=== PATIENT | female | born 1970 | race African-American/Black ===

== ENCOUNTER 2018-12-26 15:47 | Inpatient (IN) | payer MEDICARE, OTHER ==
[~2018-12-26] VITALS: Ht 165.1 cm; Wt 58.1 kg
--- NOTE | 2018-12-26 | NUR ---
NURSE NOTES: Called instructor adjunct surgical technician regarding chest xray order spoke with Analia will check order Addendum: 12/27/18 at 0655 by RYLEY PATEL RN RN charting for 12/27/18 0000
--- NOTE | 2018-12-26 15:50 | NUR ---
ED Nurse Note: PATIENT BROUGHT IN BY [facility] FROM HOME PATIENT C/O HYPERGLYCEMIA, BS AT BEDSIDE IS HIGH >500, DR SHEPPARD AT BEDSIDE MADE AWARE. PATIENT C/O SOB. X 2DAYS. PATIENT IS ALERT AND AWAKE, PATIENT REPORTS SHE FEELS LETHARGIC.
--- NOTE | 2018-12-26 16:04 | Emergency Room Report ---
History of Present Illness General Chief Complaint: General Complaint Source: Patient Present Illness HPI Patient's 48-year-old female brought in by EMS after increased generalized weakness. Patient reportedly had been off of her diabetes medications for the past 3 days. Patient had previously been on metformin. She reports of increased generalized weakness as well as nausea. She was noted to have markedly elevated blood sugar which registered high by EMS. Patient had noted to having increased generalized weakness. She reports having a prior history of type 2 diabetes. She denies any vomiting or diarrhea or alcohol abuse. Allergies: Coded Allergies: No Known Allergies (Unverified , 12/26/18) Patient History Past Medical History: see triage record Now: No Reviewed Nursing Documentation: PMH: Agreed; PSxH: Agreed Nursing Documentation-PMH Hx Diabetes: Yes Review of Systems All Other Systems: negative except mentioned in HPI Physical Exam Vital Signs Date Time Temp Pulse Resp B/P (MAP) Pulse Ox O2 Delivery O2 Flow Rate FiO2 12/26/18 15:42 98.1 130 14 116/78 100 Room Air General Appearance: alert, GCS 15, moderate distress, Chronically Ill Head: normocephalic Eyes: bilateral eye PERRL ENT: dry mucus membranes Neck: full range of motion, supple Respiratory: lungs clear, normal breath sounds Cardiovascular #1: normal peripheral pulses, no edema Gastrointestinal: soft, other - protuberant abdomen Musculoskeletal: normal inspection Neurologic: normal inspection, alert, oriented x3, responsive, liquid chlorine operator III-XII nml as tested Skin: normal inspection, normal color, no rash Procedures Critical Care Time Critical Care Time Patient had a critical medical condition which untreated could potentially result in life or limb threatening injury. Total critical care time excluding procedures approximately 45 minutes. Medical Decision Making Diagnostic Impression: Primary Impression: Metabolic acidosis Additional Impressions: High anion gap metabolic acidosis Diabetes ER Course Patient presented for generalized weakness. Differential diagnosis included was not limited to anemia, urinary tract infection, electrolyte abnormality, hypothyroidism, myocardial infarction, myasthenia gravis, dehydration, among others. Because of complexity of patient's case laboratory testing and imaging studies were ordered.Patient was noted to be Kussmaul breathing. Patient started on IV fluids as well as IV insulin. Patient was noted to have trace serum ketones as well as a markedly elevated blood sugar. Patient was noted to have a high anion gap acidosis with an elevated lactic acid level. Patient was started on insulin drip. Dr. Toni Grayson was contacted for Dr. Fernandez for inpatient management due to covering physician Labs Test 12/26/18 15:57 12/26/18 16:04 12/26/18 16:30 White Blood Count 20.4 K/UL (4.8-10.8) Red Blood Count 4.81 M/UL (4.20-5.40) Hemoglobin 13.5 G/DL (12.0-16.0) Hematocrit 44.1 % (37.0-47.0) Mean Corpuscular Volume 92 FL (80-99) Mean Corpuscular Hemoglobin 28.1 PG (27.0-31.0) Mean Corpuscular Hemoglobin Concent 30.7 G/DL (32.0-36.0) Red Cell Distribution Width 13.8 % (11.6-14.8) Platelet Count 439 K/UL (150-450) Mean Platelet Volume 6.9 FL (6.5-10.1) Neutrophils (%) (Auto) % (45.0-75.0) Lymphocytes (%) (Auto) % (20.0-45.0) Monocytes (%) (Auto) % (1.0-10.0) Eosinophils (%) (Auto) % (0.0-3.0) Basophils (%) (Auto) % (0.0-2.0) Sodium Level 138 MMOL/L (136-145) Potassium Level 3.9 MMOL/L (3.5-5.1) Chloride Level 102 MMOL/L (98-107) Carbon Dioxide Level 6 MMOL/L (21-32) Anion Gap 31 mmol/L (5-15) Blood Urea Nitrogen 13 mg/dL (7-18) Creatinine 1.6 MG/DL (0.55-1.30) Estimat Glomerular Filtration Rate 41.9 mL/min (>60) Glucose Level 609 MG/DL (74-106) Osmolality 328 mOsm/kg (297-317) Calcium Level 6.5 MG/DL (8.5-10.1) Magnesium Level 1.6 MG/DL (1.8-2.4) Total Bilirubin 0.2 MG/DL (0.2-1.0) Aspartate Amino Transf (AST/SGOT) 20 U/L (15-37) Alanine Aminotransferase (ALT/SGPT) 32 U/L (12-78) Alkaline Phosphatase 137 U/L (46-116) Total Protein 5.8 G/DL (6.4-8.2) Albumin 2.9 G/DL (3.4-5.0) Globulin 2.9 g/dL Albumin/Globulin Ratio 1.0 (1.0-2.7) Acetone Level Positive-moderate (NEGATIVE) Arterial Blood pH 7.010 (7.350-7.450) Arterial Blood Partial Pressure CO2 < 14.4 mmHg (35.0-45.0) Arterial Blood Partial Pressure O2 138.2 mmHg (75.0-100.0) Arterial Blood Oxygen Saturation 97.5 % (95-100) Dennis Test Positive Lactic Acid Level 3.50 mmol/L (0.4-2.0) EKG Diagnostic Results Rate: tachycardiac Rhythm: NSR ST Segments: other - qtc 593 Last Vital Signs Date Time Temp Pulse Resp B/P (MAP) Pulse Ox O2 Delivery O2 Flow Rate FiO2 12/26/18 15:42 98.1 130 14 116/78 100 Room Air Status: unchanged Disposition: ADMITTED INPATIENT Condition: Critical Colton Lawrence MD Dec 26, 2018 16:04
[2018-12-26 16:18] VITALS: BP 134/92
--- NOTE | 2018-12-26 16:30 | NUR ---
RESPIRATORY NOTE: ABG done at 1604, unable to get the values of HCO3 and BE due to out of analytical measurement range, CO2 <14.5. Reported the result to Colton Mckay. Dr. Lawrence aware and accept the result.
[2018-12-26 16:35] LABS: HEMATOCRIT 44.1 % (37.0-47.0); HEMOGLOBIN 13.5 G/DL (12.0-16.0); MEAN CORPUSCULAR VOLUME 92 FL (80-99); PLATELET COUNT 439 K/UL (150-450); RED BLOOD COUNT 4.81 M/UL (4.20-5.40); RED CELL DISTRIBUTION WIDTH 13.8 % (11.6-14.8); WHITE BLOOD COUNT 20.4 K/UL (4.8-10.8)
[2018-12-26 16:56] LABS: ALANINE AMINOTRANSFERASE 32 U/L (12-78); ALBUMIN 2.9 G/DL (3.4-5.0); ALKALINE PHOSPHATASE 137 U/L (46-116); ANION GAP 31 mmol/L (5-15); ASPARTATE AMINO TRANSFERASE 20 U/L (15-37); BILIRUBIN,TOTAL 0.2 MG/DL (0.2-1.0); BLOOD UREA NITROGEN 13 mg/dL (7-18); CALCIUM 6.5 MG/DL (8.5-10.1); CHLORIDE 102 MMOL/L (98-107); CREATININE 1.6 MG/DL (0.55-1.30); POTASSIUM 3.9 MMOL/L (3.5-5.1); SODIUM 138 MMOL/L (136-145)
[2018-12-26 16:59] LABS: CARBON DIOXIDE 6 MMOL/L (21-32)
--- NOTE | 2018-12-26 18:01 | NUR ---
ED Nurse Note: called ICU spoke James, the receiving nurse is so yeon she is transferring patient to tele, so yeon will call back for report. ZONIA Linda
[2018-12-26 18:16] LABS: APPEARANCE,URINE SLIGHTLY CLOUDY; BILIRUBIN, URINE NEGATIVE (NEGATIVE); COLOR,URINE PALE YELLOW; GLUCOSE, URINE (UA) 4+ (NEGATIVE); KETONES,URINE 4+ (NEGATIVE); LEUKOCYTE ESTERASE ,URINE NEGATIVE (NEGATIVE); NITRITE,URINE NEGATIVE (NEGATIVE); PH,URINE 5 (4.5-8.0); PROTEIN,URINE 3+ (NEGATIVE); UROBILINOGEN,URINE NORMAL MG/DL (0.0-1.0)
--- NOTE | 2018-12-26 19:03 | NUR ---
HAND-OFF: Report given to Jenna VILLAGRAN
[2018-12-26 19:11] VITALS: BP 128/81
--- NOTE | 2018-12-26 19:26 | NUR ---
ED Nurse Note: Patient is in the bed sleeping, no acute disstress noticed, patient's BS stiil critically high.
[2018-12-26 19:51] LABS: ALANINE AMINOTRANSFERASE 38 U/L (12-78); ALBUMIN 3.7 G/DL (3.4-5.0); ALBUMIN/GLOBULIN RATIO 0.8 (1.0-2.7); ALKALINE PHOSPHATASE 178 U/L (46-116); ANION GAP 29 mmol/L (5-15); ASPARTATE AMINO TRANSFERASE 23 U/L (15-37); BILIRUBIN,TOTAL 0.3 MG/DL (0.2-1.0); BLOOD UREA NITROGEN 14 mg/dL (7-18); CALCIUM 7.8 MG/DL (8.5-10.1); CHLORIDE 100 MMOL/L (98-107); CREATININE 1.6 MG/DL (0.55-1.30); POTASSIUM 5.2 MMOL/L (3.5-5.1); SODIUM 136 MMOL/L (136-145)
--- NOTE | 2018-12-26 19:53 | History and Physical ---
History of Present Illness General Date patient seen: Dec 26, 2018 Time patient seen: 19:33 Reason for Hospitalization: DKA Present Illness HPI CC: Generalized weakness, nausea HPI: 48-year-old woman brought in by EMS after complaints of increased generalized weakness. Patient reportedly had been off of her diabetes medications for the past 3 days. Patient had previously been on metformin. She reports of increased generalized weakness as well as nausea. She was noted to have markedly elevated blood sugar which registered high by EMS. Patient had noted to having increased generalized weakness. She reports having a prior history of type 2 diabetes. She denies any vomiting or diarrhea or alcohol abuse. +dyspnea/tachypnea IN the ED, she was noted to have elevated FBG to 609 with an anion gap metabolic acidosis. She was also noted to have leukocytosis PMHX: Diabetes as above SHx:No tobacco/EtOH FHx:Reviewed by me; not pertinent for this encounter Allergies: Coded Allergies: No Known Allergies (Unverified , 12/26/18) Medication History Scheduled Amitriptyline HCl (Amitriptyline HCl), 150 MG ORAL BEDTIME, (Reported) Metformin HCl (Metformin HCl), 500 MG PO TID, (Reported) No Known Medications* (NKM - No Known Medications*), 0 ., (Reported) Risperidone* (Risperdal*), 2 MG ORAL DAILY, (Reported) Patient History Limited by: medical condition History Provided By: Patient, EMS Healthcare decision maker Resuscitation status Advanced Directive on File Review of Systems Constitutional: Reports: chills, malaise, weakness Eye: Reports: no symptoms ENT: Reports: no symptoms Respiratory: Reports: shortness of breath Cardiovascular: Reports: no symptoms Gastrointestinal: Reports: abdominal pain, nausea Genitourinary: Reports: frequency Musculoskeletal: Reports: joint pain Skin: Reports: no symptoms Psychiatric: Reports: prior hx Neurological: Reports: no symptoms Endocrine: Reports: increased thirst, increased urine Hematologic/Lymphatic: Reports: no symptoms All Other Systems: negative except mentioned in HPI Physical Exam General Appearance: lethargic, moderate distress, thin Lines, tubes and drains: peripheral HEENT: normocephalic, atraumatic, anicteric, mucous membranes moist, PERRL Neck: non-tender, supple Respiratory/Chest: chest wall non-tender, lungs clear, respiratory distress, accessory muscle use Breasts: no masses Cardiovascular/Chest: normal peripheral pulses, tachycardia Abdomen: hypoactive bowel sounds, tender Genitourinary/Rectal: normal genital exam Extremities: normal range of motion, slow capillary refill Skin Exam: normal pigmentation Neurologic: responsive Lymphatic: anterior cervical, posterior cervical (L) Musculoskeletal: normal muscle bulk Last 24 Hour Vital Signs Date Time Temp Pulse Resp B/P (MAP) Pulse Ox O2 Delivery O2 Flow Rate FiO2 12/26/18 19:11 98.1 121 24 128/81 98 Room Air 21 12/26/18 16:19 124 25 Room Air 21 12/26/18 16:18 98.1 124 25 134/92 100 Room Air 21 12/26/18 15:42 98.1 130 14 116/78 100 Room Air Laboratory Tests Test 12/26/18 15:30 12/26/18 15:57 12/26/18 16:04 12/26/18 16:30 Urine Color Pale yellow Urine Appearance Slightly cloudy Urine pH 5 (4.5-8.0) Urine Specific [place] 1.020 (1.005-1.035) Urine Protein 3+ (NEGATIVE) H Urine Glucose (UA) 4+ (NEGATIVE) H Urine Ketones 4+ (NEGATIVE) H Urine Blood 4+ (NEGATIVE) H Urine Nitrite Negative (NEGATIVE) Urine Bilirubin Negative (NEGATIVE) Urine Urobilinogen Normal MG/DL (0.0-1.0) Urine Leukocyte Esterase Negative (NEGATIVE) Urine RBC 15-20 /HPF (0 - 2) H Urine WBC 0-2 /HPF (0 - 2) Urine Squamous Epithelial Cells Moderate /LPF (NONE/OCC) H Urine Bacteria Few /HPF (NONE) Urine HCG, Qualitative Negative (NEGATIVE) White Blood Count 20.4 K/UL (4.8-10.8) H Red Blood Count 4.81 M/UL (4.20-5.40) Hemoglobin 13.5 G/DL (12.0-16.0) Hematocrit 44.1 % (37.0-47.0) Mean Corpuscular Volume 92 FL (80-99) Mean Corpuscular Hemoglobin 28.1 PG (27.0-31.0) Mean Corpuscular Hemoglobin Concent 30.7 G/DL (32.0-36.0) L Red Cell Distribution Width 13.8 % (11.6-14.8) Platelet Count 439 K/UL (150-450) Mean Platelet Volume 6.9 FL (6.5-10.1) Neutrophils (%) (Auto) % (45.0-75.0) Lymphocytes (%) (Auto) % (20.0-45.0) Monocytes (%) (Auto) % (1.0-10.0) Eosinophils (%) (Auto) % (0.0-3.0) Basophils (%) (Auto) % (0.0-2.0) Sodium Level 138 MMOL/L (136-145) Potassium Level 3.9 MMOL/L (3.5-5.1) Chloride Level 102 MMOL/L (98-107) Carbon Dioxide Level 6 MMOL/L (21-32) *L Anion Gap 31 mmol/L (5-15) H Blood Urea Nitrogen 13 mg/dL (7-18) Creatinine 1.6 MG/DL (0.55-1.30) H Estimat Glomerular Filtration Rate 41.9 mL/min (>60) Glucose Level 609 MG/DL (74-106) *H Osmolality 328 mOsm/kg (297-317) H Calcium Level 6.5 MG/DL (8.5-10.1) L Magnesium Level 1.6 MG/DL (1.8-2.4) L Total Bilirubin 0.2 MG/DL (0.2-1.0) Aspartate Amino Transf (AST/SGOT) 20 U/L (15-37) Alanine Aminotransferase (ALT/SGPT) 32 U/L (12-78) Alkaline Phosphatase 137 U/L (46-116) H Total Protein 5.8 G/DL (6.4-8.2) L Albumin 2.9 G/DL (3.4-5.0) L Globulin 2.9 g/dL Albumin/Globulin Ratio 1.0 (1.0-2.7) Acetone Level Positive-moderate (NEGATIVE) Arterial Blood pH 7.010 (7.350-7.450) Arterial Blood Partial Pressure CO2 < 14.4 mmHg (35.0-45.0) *L Arterial Blood Partial Pressure O2 138.2 mmHg (75.0-100.0) H Arterial Blood HCO3 Pending Arterial Blood Oxygen Saturation 97.5 % (95-100) Arterial Blood Base Excess Pending Dnenis Test Positive Lactic Acid Level 3.50 mmol/L (0.4-2.0) H Test 12/26/18 16:32 12/26/18 17:23 12/26/18 19:25 Salicylates Level 4.3 ug/mL (2.8-20) Acetaminophen Level < 2 MCG/ML (10-30) L Lactic Acid Level 3.20 mmol/L (0.66-2.22) H Sodium Level Pending Potassium Level Pending Chloride Level Pending Carbon Dioxide Level Pending Blood Urea Nitrogen Pending Creatinine Pending Estimat Glomerular Filtration Rate Pending Glucose Level Pending Calcium Level Pending Total Bilirubin Pending Aspartate Amino Transf (AST/SGOT) Pending Alanine Aminotransferase (ALT/SGPT) Pending Alkaline Phosphatase Pending Total Protein Pending Albumin Pending Globulin Pending Height (Feet): 5 Height (Inches): 5.00 Weight (Pounds): 115 Medications Current Medications Medications (Trade) Dose Ordered Sig/Mavis Route PRN Reason Start Time Stop Time Status Last Admin Dose Admin Insulin Human Regular 100 units/ Sodium Chloride 101 ml @ 6.06 mls/hr ONCE ONCE IV 12/26/18 16:00 12/27/18 08:39 12/26/18 16:25 Sodium Chloride 1,000 ml @ 125 mls/hr Q8H ONCE IV 12/26/18 15:53 12/26/18 23:52 12/26/18 16:07 Assessment/Plan Status: deteriorating Status Narrative 48 yo woman with history of DM and medication noncompliance admitted with diabetic ketoacidosis Assessment/Plan #DKA #severe metabolic anion gap acidosis -Likely secondary to medication noncompliance -Admit to ICU -Continue insulin drip started in ED -Q1 FBG's -Pulmonary/Critical care consulted- f/u recs -Aggressive IVF's with particular attention to electrolytes -close cardiac monitoring given electrolyte fluctuations -replete potassium, magnesium, phosphorus aggressively as sugars and anion gap close -Trend ABG's- initial pH 7.010 -check A1c #acute respiratory failure #leukocytosis #sepsis -f/u CXR; could be related to metabolic acidosis -continue broad spectrum IV antibiotics started in ED -f/u cultures- blood, urine -O2 support- may need BiPAP -f/u Pulmonary recs #N/V -antiemetics as needed DVT Prophylaxis: SCD's, heparin Code Status: Full Hospital Classification declaration: Based on this initial evaluation and depending on the patient's clinical course I anticipate that this patient will require hospitalization for at least 2-3 days Disposition: Once the patient is stable to leave the hospital I anticipate the patient will likely be discharged to the following environment: Home At the time of my involvement, the patient's condition was critical with high potential for and/or physiologic deterioration secondary to DKA, sepsis and acute respiratory failure as delineated in the note above. On the above date of service, I spent a total of 40 minutes in the ED and ICU evaluating, managing, and providing critical care services to this patient, including time spent documenting these activities, counseling patient/family, and coordinating care. Critical care services performed include: Telemetry Review Hemodynamic measurement interpretation Laboratory data review and interpretation Discussion of care plans with patient, family, and/or surrogate decision makers Discussion of patient's care with primary medical team, surgical team, and/or consulting service Decision to obtain further radiologic evaluation, after consideration of risk/ benefit ratio Review of most recent microbiology results with assessment and modification of antimicrobial coverage Discussion of patient's code status and further advancement towards the ultimate goals of care Plan outlined above discussed with patient, ED RN, ICU team, and involved physicians/consultants Time of note may not reflect time of encounter Toni Grayson MD Dec 26, 2018 19:53
[2018-12-26 20:01] LABS: CARBON DIOXIDE 7 MMOL/L (21-32)
[2018-12-26] MEDS ORDERED: NKM (20:10)
--- NOTE | 2018-12-26 20:15 | NUR ---
ED Nurse Note: Patient was admited to ICU due to uncontrolled glucose, patient's BS 475, other VSS at this time, AAO x4, skin is dry intact. All belongings were given to the patient. Patient was transfered by ACLS protocol.
[2018-12-26 20:30] VITALS: BP 110/87
--- NOTE | 2018-12-26 20:45 | NUR ---
NURSE NOTES: Received report from Jenna VILLAGRAN. Patient came from [place] via [email or web address] accompany by MAT LINKER and crown and bridge dental lab technician.Patient admitted from home under the care of Dr. Campbell for uncontrolled glucose initial blood glucose 609mg/dl rechecked blood glucose 404mg/dl. Patient awake,alert oriented X3 able to verbalize needs to staff. Patient forget the medication shes taking at home will ask again later. No complain of pain or discomfort. oxygen saturation room air 100%. Able to move all extremities but with complained of body weakness. per patient she stop taking her Metformin and other regular medication 3 days ago because shes losing weight with metformin medication. Patient teaching provided to take medication for DM and also talk to Provider for alternative medication explained the importance v/s risk and benefits of taking medication patient verbalizes understanding. Body assessment done. Instructed patient to use call light for assistance. Bed alarm on. Bed locked and in low position. Will continue plan of care. IV line intact on NovoLog insulin drip 6.06mls/hr.Will call MD for admission orders.
[2018-12-26 21:00] VITALS: BP 128/76
[2018-12-26] MEDS ORDERED: Insulin Rate Change 1 Each MISC PRN (21:15)
[2018-12-26] MEDS ORDERED: Insulin Human Regular 100units/ml 3ml IV PRN ×2 (21:15)
--- NOTE | 2018-12-26 21:24 | NUR ---
NURSE NOTES: Obtained admission orders from coreroom foundry laborer Dr. Grayson noted and carried out.
--- NOTE | 2018-12-26 21:37 | Pulmonolgy Critical Care Note ---
Critical Care - Asmt/Plan Assessment/Plan: Pulmonary Critical Care Consultation HPI Patient's 48-year-old female brought in by EMS after increased generalized weakness. Patient reportedly had been off of her diabetes medications for the past 3 days. Patient had previously been on metformin. She reports of increased generalized weakness as well as nausea. She was noted to have markedly elevated blood sugar which registered high by EMS. Patient had noted to having increased generalized weakness. She reports having a prior history of type 2 diabetes. She denies any vomiting or diarrhea or alcohol abuse. Allergies: No Known Allergies Past Medical History: Diabetes Mellitus All Other Systems: negative except mentioned in HPI Physical Exam Vital Signs Noted Date Time Temp Pulse Resp B/P (MAP) Pulse Ox O2 Delivery O2 Flow Rate FiO2 12/26/18 15:42 98.1 130 14 116/78 100 Room Air General Appearance: alert, GCS 15, moderate distress, Chronically Ill appearing Head: normocephalic Eyes: bilateral eye PERRL ENT: dry mucus membranes Neck: full range of motion, supple Respiratory: lungs clear, normal breath sounds Cardiovascular: HS1, HS2 normal, normal peripheral pulses, no edema Gastrointestinal: soft, other - protuberant abdomen Musculoskeletal: normal inspection Neurologic: normal inspection, alert, oriented x3, responsive, braid cutter III-XII nml as tested Skin: normal inspection, normal color, no rash Impression: Diabetic Ketoacidosis Possible Sepsis Diabetes Plan IV fluids IV insulin Broad spectrum antibiotics Monitor Labs Recheck ABG - may need Bicarbonate gtt PPX O2 PRN BiPAP PRN NPO as may need intubation Labs Test 12/26/18 15:57 12/26/18 16:04 12/26/18 16:30 White Blood Count 20.4 K/UL (4.8-10.8) Red Blood Count 4.81 M/UL (4.20-5.40) Hemoglobin 13.5 G/DL (12.0-16.0) Hematocrit 44.1 % (37.0-47.0) Mean Corpuscular Volume 92 FL (80-99) Mean Corpuscular Hemoglobin 28.1 PG (27.0-31.0) Mean Corpuscular Hemoglobin Concent 30.7 G/DL (32.0-36.0) Red Cell Distribution Width 13.8 % (11.6-14.8) Platelet Count 439 K/UL (150-450) Mean Platelet Volume 6.9 FL (6.5-10.1) Neutrophils (%) (Auto) % (45.0-75.0) Lymphocytes (%) (Auto) % (20.0-45.0) Monocytes (%) (Auto) % (1.0-10.0) Eosinophils (%) (Auto) % (0.0-3.0) Basophils (%) (Auto) % (0.0-2.0) Sodium Level 138 MMOL/L (136-145) Potassium Level 3.9 MMOL/L (3.5-5.1) Chloride Level 102 MMOL/L (98-107) Carbon Dioxide Level 6 MMOL/L (21-32) Anion Gap 31 mmol/L (5-15) Blood Urea Nitrogen 13 mg/dL (7-18) Creatinine 1.6 MG/DL (0.55-1.30) Estimat Glomerular Filtration Rate 41.9 mL/min (>60) Glucose Level 609 MG/DL (74-106) Osmolality 328 mOsm/kg (297-317) Calcium Level 6.5 MG/DL (8.5-10.1) Magnesium Level 1.6 MG/DL (1.8-2.4) Total Bilirubin 0.2 MG/DL (0.2-1.0) Aspartate Amino Transf (AST/SGOT) 20 U/L (15-37) Alanine Aminotransferase (ALT/SGPT) 32 U/L (12-78) Alkaline Phosphatase 137 U/L (46-116) Total Protein 5.8 G/DL (6.4-8.2) Albumin 2.9 G/DL (3.4-5.0) Globulin 2.9 g/dL Albumin/Globulin Ratio 1.0 (1.0-2.7) Acetone Level Positive-moderate (NEGATIVE) Arterial Blood pH 7.010 (7.350-7.450) Arterial Blood Partial Pressure CO2 < 14.4 mmHg (35.0-45.0) Arterial Blood Partial Pressure O2 138.2 mmHg (75.0-100.0) Arterial Blood Oxygen Saturation 97.5 % (95-100) Dennis Test Positive Lactic Acid Level 3.50 mmol/L (0.4-2.0) EKG: Rate: tachycardiac Rhythm: NSR ST Segments: other - qtc 593 Critical Care - Objective Last 24 Hour Vital Signs Date Time Temp Pulse Resp B/P (MAP) Pulse Ox O2 Delivery O2 Flow Rate FiO2 12/26/18 21:00 97.7 114 128/76 (93) 12/26/18 20:30 98.2 123 23 110/87 100 Room Air 21 12/26/18 20:30 98.1 121 24 128/81 98 Room Air 21 12/26/18 19:11 98.1 121 24 128/81 98 Room Air 21 12/26/18 16:19 124 25 Room Air 21 12/26/18 16:18 98.1 124 25 134/92 100 Room Air 21 12/26/18 15:42 98.1 130 14 116/78 100 Room Air Accucheck: 478 Critical Care - Subjective ROS Limited/Unobtainable: No Condition: critical EKG Rhythm: Sinus Rhythm FI02: 21 Satish Friedman MD Dec 26, 2018 21:37
--- NOTE | 2018-12-26 21:50 | NUR ---
NURSE NOTES: Dr. Friedman called gave orders noted and carried out
[2018-12-26 22:00] VITALS: BP 124/80
--- NOTE | 2018-12-26 22:13 | NUR ---
NURSE NOTES: Called Pharmacist spoke with Jaime still waiting for the insulin drip label,charge nurse aware.
[2018-12-26 22:20] LABS: HEMATOCRIT 39.8 % (37.0-47.0); HEMOGLOBIN 12.6 G/DL (12.0-16.0); MEAN CORPUSCULAR VOLUME 89 FL (80-99); PLATELET COUNT 325 K/UL (150-450); RED BLOOD COUNT 4.47 M/UL (4.20-5.40); RED CELL DISTRIBUTION WIDTH 13.5 % (11.6-14.8); WHITE BLOOD COUNT 21.3 K/UL (4.8-10.8)
[2018-12-26 22:30] LABS: ANION GAP 24 mmol/L (5-15); BLOOD UREA NITROGEN 12 mg/dL (7-18); CALCIUM 7.4 MG/DL (8.5-10.1); CARBON DIOXIDE 10 MMOL/L (21-32); CHLORIDE 106 MMOL/L (98-107); CREATININE 1.2 MG/DL (0.55-1.30); PHOSPHORUS 1.9 MG/DL (2.5-4.9); POTASSIUM 4.6 MMOL/L (3.5-5.1); SODIUM 140 MMOL/L (136-145)
[2018-12-26] MEDS ORDERED: D5NS 1,000 ML IV SCH (22:45)
[2018-12-26 23:00] VITALS: BP 109/59
[2018-12-26] MEDS ORDERED: Doxycycline Hyclate 100 MG in D5W 110 ML IV SCH (23:00)
[2018-12-26] MEDS ORDERED: Thiamine HCl 100 MG in D5W 55 ML IVPB SCH (23:00)
[2018-12-27] VITALS (24 sets, daily range): BP systolic 90–122; BP diastolic 50–76
[2018-12-27] MEDS ORDERED: Piperacillin/Tazobactam 3.375 GM in NS 110 ML IVPB SCH ×2
[2018-12-27] MEDS ORDERED: Zosyn 2.25 gm in D5W 55ml IV SCH ×2
[2018-12-27] MEDS ORDERED: Potassium Phosphate 30 MM in NS 275 ML IV ONE ×2
--- NOTE | 2018-12-27 00:05 | NUR ---
NURSE NOTES: Dr. Friedman came with new orders noted and carried out. Dr. Friedman made aware that patient having anxiety with bipap per MD its okay to removed.
[2018-12-27] MEDS ORDERED: Insulin Human Regular 100units/ml 3ml IV PRN ×2 (00:15)
[2018-12-27] MEDS: D5 1/2NS 1,000 ML IV SCH ×4 (00:39→23:11)
[2018-12-27] MEDS: NS IV SCH ×2 (00:58→05:31)
[2018-12-27] MEDS: ZOSYN IV SCH ×2 (00:58→05:31)
--- NOTE | 2018-12-27 01:00 | NUR ---
NURSE NOTES: Patient awake alert no complain of pain or discomfort. On Insulin drip algorithm 2 2.5mls/hr Blood glucose 177mg/dl. Aparicio draining with clear yellow urine. Oxygen saturation room air 100%. No s/s of acute distress noted. Call light within easy reach. Will continue plan of care.
--- NOTE | 2018-12-27 02:07 | NUR ---
NURSE NOTES: send message to [facility] to send label for Humulin R insulin 5 units and 10 units
--- NOTE | 2018-12-27 02:21 | NUR ---
NURSE NOTES: Called [facility] to send label for Humulin insulin spoke with Viola
--- NOTE | 2018-12-27 03:08 | NUR ---
NURSE NOTES: Blood glucose 181mg/dl will change to algorithm 3 per protocol, charge nurse aware. send message to [facility] pharmacist.
--- NOTE | 2018-12-27 03:36 | NUR ---
NURSE NOTES: Chest xray done will follow up result.
--- NOTE | 2018-12-27 05:00 | NUR ---
NURSE NOTES: Patient in bed resting no s/s of acute distress noted. HOB elevated. Aparicio draining. Denies any pain or discomfort. Blood glucose 169mg/dl Algorithm 3 5mls/hr. Call light within easy reach.
--- NOTE | 2018-12-27 05:00 | NUR ---
NURSE NOTES: Chest xray result no evidence of active cardiopulmonary abnormality charge nurse aware. will inform MD in am.
--- NOTE | 2018-12-27 05:27 | Diagnostic Imaging Report ---
EXAM: XR Chest, 1 View. CLINICAL HISTORY: FATIGUE TECHNIQUE: Frontal view of the chest. COMPARISON: No relevant prior studies available. FINDINGS: Lungs: Unremarkable. Lung volumes are within normal limits. No consolidation. No diffuse interstitial abnormality. Pleural spaces: Unremarkable. No pneumothorax. Heart: Unremarkable. No cardiomegaly. Mediastinum: No mediastinal widening or shift. Bones: Unremarkable. No acute fracture. IMPRESSION: No evidence of active cardiopulmonary abnormality.
--- NOTE | 2018-12-27 06:09 | NUR ---
NURSE NOTES: Patient in bed sleeping comfortably. Blood glucose 174mg/dl will change insulin drip algorithm 4 per protocol, send message to [facility]. charge nurse aware. Patient no s/s of hypo/hyperglycemia. No s/s of acute distress noted.
--- NOTE | 2018-12-27 07:20 | NUR ---
HAND-OFF: Report given to TYSHAWN Glover.
[2018-12-27 07:56] LABS: BASOPHILS % (AUTO) 1.6 % (0.0-2.0); EOSINOPHILS % (AUTO) 0.2 % (0.0-3.0); HEMATOCRIT 32.7 % (37.0-47.0); HEMOGLOBIN 10.8 G/DL (12.0-16.0); LYMPHOCYTES % (AUTO) 19.2 % (20.0-45.0); MEAN CORPUSCULAR VOLUME 88 FL (80-99); MONOCYTES % (AUTO) 9.7 % (1.0-10.0); NEUTROPHILS % (AUTO) 69.3 % (45.0-75.0); PLATELET COUNT 282 K/UL (150-450); RED BLOOD COUNT 3.72 M/UL (4.20-5.40); RED CELL DISTRIBUTION WIDTH 13.1 % (11.6-14.8); WHITE BLOOD COUNT 12.3 K/UL (4.8-10.8)
--- NOTE | 2018-12-27 08:00 | NUR ---
NURSE NOTES: Received patient from TYSHAWN Harris. Pt is alert and oriented x4, follows commands. VSS. HR SR-ST, afebrile. 3 peripheral IV's dry and intact, running inulin drip at 3 units/hr algorhythm 4. Ahmadi draining to gravity, no pain at the moment. Safety measures in place, will continue plan of care.
[2018-12-27] MEDS ORDERED: AMITRIPTYLINE100 MG ORAL (08:07)
[2018-12-27] MEDS ORDERED: RISPERDAL2 MG ORAL (08:07)
[2018-12-27] MEDS ORDERED: METFORMIN500 MG/5 M PO (08:07)
[2018-12-27 08:30] LABS: ALANINE AMINOTRANSFERASE 30 U/L (12-78); ALBUMIN 2.8 G/DL (3.4-5.0); ALBUMIN/GLOBULIN RATIO 0.8 (1.0-2.7); ALKALINE PHOSPHATASE 123 U/L (46-116); ANION GAP 15 mmol/L (5-15); ASPARTATE AMINO TRANSFERASE 25 U/L (15-37); BILIRUBIN,TOTAL 0.1 MG/DL (0.2-1.0); BLOOD UREA NITROGEN 8 mg/dL (7-18); CALCIUM 6.7 MG/DL (8.5-10.1); CARBON DIOXIDE 15 MMOL/L (21-32); CHLORIDE 109 MMOL/L (98-107); POTASSIUM 3.7 MMOL/L (3.5-5.1); SODIUM 139 MMOL/L (136-145)
[2018-12-27] MEDS: Heparin 5000 units/ml inj SUBQ SCH ×2 (09:23→20:16)
[2018-12-27] MEDS: Pantoprazole Inj IV SCH (09:24)
--- NOTE | 2018-12-27 10:00 | NUR ---
NURSE NOTES: Pt resting in bed, no s/s of acute distress. will continue plan of care.
--- NOTE | 2018-12-27 11:27 | NUR ---
CASE MANAGEMENT: REVIEW / BIBA FROM HOME CC: UNCONTROLLED GLUCOSE SI: METABOLIC ACIDOSIS . DM T 98.1 HR 130 RR 25 BP 109 SAT 98% ROOM AIR WBC 20.4 A-GAP 31 GLUCOSE 609 OSMOLALITY 328 LACTIC ACID 3.50 UA: PROTEIN 3+ GLUCOSE 4+ KETONE 4+ BLOOD 4+ ABG: PH 7.010 PCO2 <14.4 PO2 138 HCO3 5.9 IS: NS IVF BOLUS IV X1 NOVOLIN R INSULIN IV BOLUS X1 KCl 10mEq IVF BOLUS X1 PATIENT ADMITTED TO ICU 12/26/2018 DCP: PATIENT IS FROM HOME
[2018-12-27] MEDS ORDERED: Potassium Phosphate 20 MM in NS 275 ML IV ONE (12:00)
--- NOTE | 2018-12-27 12:00 | NUR ---
NURSE NOTES: Pt ate 50% of lunch, VSS but HR 105, Pt resting in bed at the moment. will continue plan of care.
--- NOTE | 2018-12-27 13:58 | Pulmonolgy Critical Care Note ---
Critical Care - Asmt/Plan Assessment/Plan: Pulmonary Critical Care Consultation HPI Patient's 48-year-old female brought in by EMS after increased generalized weakness. Patient reportedly had been off of her diabetes medications for the past 3 days. Patient had previously been on metformin. She reports of increased generalized weakness as well as nausea. She was noted to have markedly elevated blood sugar which registered high by EMS. Patient had noted to having increased generalized weakness. She reports having a prior history of type 2 diabetes. She denies any vomiting or diarrhea or alcohol abuse. Feels much better today Allergies: No Known Allergies Past Medical History: Diabetes Mellitus All Other Systems: negative except mentioned in HPI Physical Exam Vital Signs Noted Date Time Temp Pulse Resp B/P (MAP) Pulse Ox O2 Delivery O2 Flow Rate FiO2 12/26/18 15:42 98.1 130 14 116/78 100 Room Air General Appearance: alert, GCS 15, moderate distress, Chronically Ill appearing Head: normocephalic Eyes: bilateral eye PERRL ENT: dry mucus membranes Neck: full range of motion, supple Respiratory: lungs clear, normal breath sounds Cardiovascular: HS1, HS2 normal, normal peripheral pulses, no edema Gastrointestinal: soft, other - protuberant abdomen Musculoskeletal: normal inspection Neurologic: normal inspection, alert, oriented x3, responsive, sales and events coordinator III-XII nml as tested Skin: normal inspection, normal color, no rash Impression: Diabetic Ketoacidosis Possible Sepsis Diabetes Plan IV fluids IV insulin Broad spectrum antibiotics - just Zosyn for now Monitor Labs PPX O2 PRN 1800 ADA diet Labs Test 12/26/18 15:57 12/26/18 16:04 12/26/18 16:30 White Blood Count 20.4 K/UL (4.8-10.8) Red Blood Count 4.81 M/UL (4.20-5.40) Hemoglobin 13.5 G/DL (12.0-16.0) Hematocrit 44.1 % (37.0-47.0) Mean Corpuscular Volume 92 FL (80-99) Mean Corpuscular Hemoglobin 28.1 PG (27.0-31.0) Mean Corpuscular Hemoglobin Concent 30.7 G/DL (32.0-36.0) Red Cell Distribution Width 13.8 % (11.6-14.8) Platelet Count 439 K/UL (150-450) Mean Platelet Volume 6.9 FL (6.5-10.1) Neutrophils (%) (Auto) % (45.0-75.0) Lymphocytes (%) (Auto) % (20.0-45.0) Monocytes (%) (Auto) % (1.0-10.0) Eosinophils (%) (Auto) % (0.0-3.0) Basophils (%) (Auto) % (0.0-2.0) Sodium Level 138 MMOL/L (136-145) Potassium Level 3.9 MMOL/L (3.5-5.1) Chloride Level 102 MMOL/L (98-107) Carbon Dioxide Level 6 MMOL/L (21-32) Anion Gap 31 mmol/L (5-15) Blood Urea Nitrogen 13 mg/dL (7-18) Creatinine 1.6 MG/DL (0.55-1.30) Estimat Glomerular Filtration Rate 41.9 mL/min (>60) Glucose Level 609 MG/DL (74-106) Osmolality 328 mOsm/kg (297-317) Calcium Level 6.5 MG/DL (8.5-10.1) Magnesium Level 1.6 MG/DL (1.8-2.4) Total Bilirubin 0.2 MG/DL (0.2-1.0) Aspartate Amino Transf (AST/SGOT) 20 U/L (15-37) Alanine Aminotransferase (ALT/SGPT) 32 U/L (12-78) Alkaline Phosphatase 137 U/L (46-116) Total Protein 5.8 G/DL (6.4-8.2) Albumin 2.9 G/DL (3.4-5.0) Globulin 2.9 g/dL Albumin/Globulin Ratio 1.0 (1.0-2.7) Acetone Level Positive-moderate (NEGATIVE) Arterial Blood pH 7.010 (7.350-7.450) Arterial Blood Partial Pressure CO2 < 14.4 mmHg (35.0-45.0) Arterial Blood Partial Pressure O2 138.2 mmHg (75.0-100.0) Arterial Blood Oxygen Saturation 97.5 % (95-100) Dennis Test Positive Lactic Acid Level 3.50 mmol/L (0.4-2.0) EKG: Rate: tachycardiac Rhythm: NSR ST Segments: other - qtc 593 Critical Care - Objective Last 24 Hour Vital Signs Date Time Temp Pulse Resp B/P (MAP) Pulse Ox O2 Delivery O2 Flow Rate FiO2 12/27/18 12:00 108 12/27/18 12:00 98.2 103 22 110/74 (86) 100 12/27/18 12:00 Room Air 12/27/18 11:00 102 21 121/71 (88) 100 12/27/18 10:00 105 21 116/68 (84) 100 12/27/18 09:00 106 21 110/60 (77) 100 12/27/18 08:00 110 12/27/18 08:00 98.4 103 22 90/74 (79) 100 12/27/18 08:00 Room Air 12/27/18 07:00 105 21 112/68 (83) 100 12/27/18 06:00 104 23 121/68 (85) 100 12/27/18 05:00 105 23 109/74 (86) 100 12/27/18 04:00 98.4 103 22 112/74 (87) 100 12/27/18 04:00 112 12/27/18 04:00 Room Air 12/27/18 03:00 105 20 117/69 (85) 100 12/27/18 02:00 105 22 118/68 (85) 100 12/27/18 01:01 108 25 118/76 (90) 100 12/27/18 00:00 Room Air 12/27/18 00:00 108 12/27/18 00:00 98.4 106 25 122/72 (89) 100 12/26/18 23:34 111 21 100 Full Face 21 12/26/18 23:00 30 12/26/18 23:00 114 23 109/59 (76) 100 12/26/18 22:00 120 24 124/80 (95) 100 12/26/18 21:00 97.7 114 128/76 (93) 12/26/18 21:00 Room Air 12/26/18 21:00 114 12/26/18 20:30 98.2 123 23 110/87 100 Room Air 21 12/26/18 20:30 98.1 121 24 128/81 98 Room Air 21 12/26/18 19:11 98.1 121 24 128/81 98 Room Air 21 12/26/18 16:19 124 25 Room Air 21 12/26/18 16:18 98.1 124 25 134/92 100 Room Air 21 12/26/18 15:42 98.1 130 14 116/78 100 Room Air Micro: Microbiology Date/Time Source Procedure Growth Status 12/26/18 18:10 Rectum Received Accucheck: 128 Critical Care - Subjective ROS Limited/Unobtainable: No Condition: improving IV Access: peripheral EKG Rhythm: Sinus Rhythm FI02: 21 Sputum Amount: None I&O: Intake and Output 12/26/18 12/27/18 18:59 06:59 Intake Total 12.12 ml 2219.61 ml Output Total 1575 ml Balance 12.12 ml 644.61 ml Intake Oral 350 ml IV Total 12.12 ml 1869.61 ml Output Urine Total 1575 ml # Voids 2 Satish Friedman MD Dec 27, 2018 13:58
--- NOTE | 2018-12-27 14:00 | NUR ---
NURSE NOTES: Dr. Friedman rounded on pt, new order in , will carry out.
[2018-12-27] MEDS: Zosyn 3.375gm q8h **Extended infusion IVPB SCH ×4 (14:52→22:03)
--- NOTE | 2018-12-27 15:46 | General Progress Note ---
Assessment/Plan Status: progressing Status Narrative 48 yo woman with history of DM and medication noncompliance admitted with diabetic ketoacidosis Assessment/Plan #DKA #severe metabolic anion gap acidosis -Pulmonary/Critical care consulted- recs and management appreciated -Continue insulin drip- transitioning to subcutaneous insulin -Q1 FBG's -Aggressive IVF's with particular attention to electrolytes -close cardiac monitoring given electrolyte fluctuations -replete potassium, magnesium, phosphorus aggressively as sugars and anion gap close -Trend ABG's- initial pH 7.010 now improving -A1c- 16.0 -Diabetic teaching- will need insulin on discharge #Hypophosphatemia #Hypokalemia #Hypomagnesemia -replete electrolytes aggressively #acute respiratory failure-improving #leukocytosis-improving #sepsis -CXR- no infiltrates - likely related to severe metabolic acidosis -continue broad spectrum IV antibiotics -f/u cultures- blood, urine -O2 support- as needed -Pulmonary recs appreciated #N/V -antiemetics as needed DVT Prophylaxis: SCD's, heparin Code status: Full Hospital Classification declaration: Based on this initial evaluation, and depending on the patient's clinical course, I anticipate that this patient will require hospitalization for 2-3 days. Disposition: Once the patient is stable to leave the hospital, I anticipate the patient will likely be discharged to the following environment:Home I spent 45 minutes on this patient's case, and 25 minutes was dedicated to counseling and/or care coordination. Time of note may not reflect time of encounter. Subjective Date patient seen: Dec 27, 2018 Time patient seen: 15:22 ROS Limited/Unobtainable: No Constitutional: Reports: malaise, weakness HEENT: Reports: no symptoms Cardiovascular: Reports: no symptoms Respiratory: Reports: no symptoms Gastrointestinal/Abdominal: Reports: nausea Genitourinary: Reports: no symptoms Neurologic/Psychiatric: Reports: no symptoms Endocrine: Reports: increased thirst, increased urine, unexplained weight loss Hematologic/Lymphatic: Reports: no symptoms Allergies: Coded Allergies: No Known Allergies (Unverified , 12/26/18) All Systems: reviewed and negative except above Subjective Events of overnight noted Chart reviewed by me AG closing; patient remains on insulin drip Nausea, tachypnea improved Appetite returning Remains in ICU Objective Last 24 Hour Vital Signs Date Time Temp Pulse Resp B/P (MAP) Pulse Ox O2 Delivery O2 Flow Rate FiO2 12/27/18 12:00 108 12/27/18 12:00 98.2 103 22 110/74 (86) 100 12/27/18 12:00 Room Air 12/27/18 11:00 102 21 121/71 (88) 100 12/27/18 10:00 105 21 116/68 (84) 100 12/27/18 09:00 106 21 110/60 (77) 100 12/27/18 08:00 110 12/27/18 08:00 98.4 103 22 90/74 (79) 100 12/27/18 08:00 Room Air 12/27/18 07:00 105 21 112/68 (83) 100 12/27/18 06:00 104 23 121/68 (85) 100 12/27/18 05:00 105 23 109/74 (86) 100 12/27/18 04:00 98.4 103 22 112/74 (87) 100 12/27/18 04:00 112 12/27/18 04:00 Room Air 12/27/18 03:00 105 20 117/69 (85) 100 12/27/18 02:00 105 22 118/68 (85) 100 12/27/18 01:01 108 25 118/76 (90) 100 12/27/18 00:00 Room Air 12/27/18 00:00 108 12/27/18 00:00 98.4 106 25 122/72 (89) 100 12/26/18 23:34 111 21 100 Full Face 21 12/26/18 23:00 30 12/26/18 23:00 114 23 109/59 (76) 100 12/26/18 22:00 120 24 124/80 (95) 100 12/26/18 21:00 97.7 114 128/76 (93) 12/26/18 21:00 Room Air 12/26/18 21:00 114 12/26/18 20:30 98.2 123 23 110/87 100 Room Air 21 12/26/18 20:30 98.1 121 24 128/81 98 Room Air 21 12/26/18 19:11 98.1 121 24 128/81 98 Room Air 21 12/26/18 16:19 124 25 Room Air 21 12/26/18 16:18 98.1 124 25 134/92 100 Room Air 21 Intake and Output 12/26/18 12/27/18 18:59 06:59 Intake Total 12.12 ml 2219.61 ml Output Total 1575 ml Balance 12.12 ml 644.61 ml Intake Oral 350 ml IV Total 12.12 ml 1869.61 ml Output Urine Total 1575 ml # Voids 2 Laboratory Tests 12/26/18 15:57: White Blood Count 20.4H, Red Blood Count 4.81, Hemoglobin 13.5, Hematocrit 44.1 , Mean Corpuscular Volume 92, Mean Corpuscular Hemoglobin 28.1, Mean Corpuscular Hemoglobin Concent 30.7L, Red Cell Distribution Width 13.8, Platelet Count 439, Mean Platelet Volume 6.9, Neutrophils (%) (Auto) , Lymphocytes (%) (Auto) , Monocytes (%) (Auto) , Eosinophils (%) (Auto) , Basophils (%) (Auto) , Sodium Level 138, Potassium Level 3.9, Chloride Level 102 , Carbon Dioxide Level 6*L, Anion Gap 31H, Blood Urea Nitrogen 13, Creatinine 1.6H, Estimat Glomerular Filtration Rate 41.9, Glucose Level 609*H, Osmolality 328H, Calcium Level 6.5L, Magnesium Level 1.6L, Total Bilirubin 0.2, Aspartate Amino Transf (AST/SGOT) 20, Alanine Aminotransferase (ALT/SGPT) 32, Alkaline Phosphatase 137H, Total Protein 5.8L, Albumin 2.9L, Globulin 2.9, Albumin/ Globulin Ratio 1.0, Acetone Level Positive-moderate 12/26/18 16:04: Arterial Blood pH 7.010*L, Arterial Blood Partial Pressure CO2 < 14.4*L, Arterial Blood Partial Pressure O2 138.2H, Arterial Blood HCO3 [Pending], Arterial Blood Oxygen Saturation 97.5, Arterial Blood Base Excess [Pending], Dennis Test Positive 12/26/18 16:30: Lactic Acid Level 3.50H 12/26/18 16:32: Salicylates Level 4.3, Acetaminophen Level < 2L 12/26/18 17:23: Lactic Acid Level 3.20H 12/26/18 19:25: Sodium Level 136, Potassium Level 5.2H, Chloride Level 100, Carbon Dioxide Level 7*L, Anion Gap 29H, Blood Urea Nitrogen 14, Creatinine 1.6H, Estimat Glomerular Filtration Rate 41.9, Glucose Level 453#H, Calcium Level 7.8L, Total Bilirubin 0.3, Aspartate Amino Transf (AST/SGOT) 23, Alanine Aminotransferase ( ALT/SGPT) 38, Alkaline Phosphatase 178H, Total Protein 8.1#, Albumin 3.7, Globulin 4.4, Albumin/Globulin Ratio 0.8L 12/26/18 22:00: Arterial Blood pH 7.209*L, Arterial Blood Partial Pressure CO2 15.1*L, Arterial Blood Partial Pressure O2 146.9H, Arterial Blood HCO3 5.9*L, Arterial Blood Oxygen Saturation 98.5, Arterial Blood Base Excess -19.7*L, Dennis Test Positive 12/26/18 22:10: Sodium Level 140, Potassium Level 4.6, Chloride Level 106, Carbon Dioxide Level 10L, Anion Gap 24H, Blood Urea Nitrogen 12, Creatinine 1.2, Estimat Glomerular Filtration Rate 58.4, Glucose Level 264#H, Calcium Level 7.4L, White Blood Count 21.3H, Red Blood Count 4.47, Hemoglobin 12.6, Hematocrit 39.8, Mean Corpuscular Volume 89, Mean Corpuscular Hemoglobin 28.2, Mean Corpuscular Hemoglobin Concent 31.7L, Red Cell Distribution Width 13.5, Platelet Count 325, Mean Platelet Volume 6.8, Neutrophils (%) (Auto) , Lymphocytes (%) (Auto) , Monocytes (%) (Auto) , Eosinophils (%) (Auto) , Basophils (%) (Auto) , Hemoglobin A1c 16.0H, Phosphorus Level 1.9L, Magnesium Level 1.6L 12/27/18 07:20: White Blood Count 12.3H, Red Blood Count 3.72L, Hemoglobin 10.8L, Hematocrit 32.7L, Mean Corpuscular Volume 88, Mean Corpuscular Hemoglobin 28.9, Mean Corpuscular Hemoglobin Concent 32.9, Red Cell Distribution Width 13.1, Platelet Count 282, Mean Platelet Volume 7.3, Neutrophils (%) (Auto) 69.3, Lymphocytes (% ) (Auto) 19.2L, Monocytes (%) (Auto) 9.7, Eosinophils (%) (Auto) 0.2, Basophils (%) (Auto) 1.6, Sodium Level 139, Potassium Level 3.7, Chloride Level 109H, Carbon Dioxide Level 15L, Anion Gap 15, Blood Urea Nitrogen 8, Creatinine 1.0, Estimat Glomerular Filtration Rate > 60, Glucose Level 133#H, Lactic Acid Level 1.60, Calcium Level 6.7L, Magnesium Level 1.7L, Total Bilirubin 0.1L, Aspartate Amino Transf (AST/SGOT) 25, Alanine Aminotransferase (ALT/SGPT) 30, Alkaline Phosphatase 123H, Total Protein 6.3L, Albumin 2.8L, Globulin 3.5, Albumin/ Globulin Ratio 0.8L 12/27/18 07:55: Arterial Blood pH 7.354, Arterial Blood Partial Pressure CO2 24.9*L, Arterial Blood Partial Pressure O2 109.8H, Arterial Blood HCO3 13.6*L, Arterial Blood Oxygen Saturation 97.8, Arterial Blood Base Excess -10.5*L, Dennis Test Positive Height (Feet): 5 Height (Inches): 5.00 Weight (Pounds): 114 General Appearance: lethargic, mild distress EENT: PERRL/EOMI, normal ENT inspection, TMs normal, pale conjunctivae Neck: non-tender, supple Cardiovascular: normal peripheral pulses, tachycardia Respiratory/Chest: chest wall non-tender, lungs clear, normal breath sounds Abdomen: normal bowel sounds, non tender, soft Pelvis: normal external exam Extremities: normal range of motion Edema: no edema noted Arm (L), no edema noted Arm (R), no edema noted Leg (L), no edema noted Leg (R) Neurologic: machinist set up II-XII grossly normal, alert Skin: normal pigmentation Lymphatic: normal anterior cervical (L), normal anterior cervical (R) Toni Grayson MD Dec 27, 2018 15:46
--- NOTE | 2018-12-27 16:00 | NUR ---
NURSE NOTES: Pt resting in bed, no s/s of acute distress.
--- NOTE | 2018-12-27 19:04 | NUR ---
HAND-OFF: Report given to TYSHAWN Gross.
--- NOTE | 2018-12-27 19:27 | NUR ---
NURSE NOTES: Received patient from Adalberto VILLAGRAN. Pt is alert and oriented x4, follows commands. VSS. HR SR-ST, afebrile. 3 peripheral IV's dry and intact, running inulin drip at 2 units/hr algorithm 4. Aparicio draining to gravity, no pain at the moment. Safety measures in place, will continue plan of care.
--- NOTE | 2018-12-27 20:00 | NUR ---
NURSE NOTES: Glucose 106, no rate change per gtt protocol, remains in Algorithm 4. Patient remains awake and alert. Self repositions. Patient given light snack.
[2018-12-27] MEDS: Levemir Flexpen SUBQ SCH (20:16)
--- NOTE | 2018-12-27 21:00 | NUR ---
NURSE NOTES: Glucose 185, rate changed. VS remains stable, no acute distress, remains awake and oriented. IV lines remains patent and intact.
[2018-12-27] MEDS: Insulin Rate Change 1 Each MISC PRN ×3 (21:17→23:11)
--- NOTE | 2018-12-27 22:00 | NUR ---
NURSE NOTES: Glucose 160, rate change, Algorithm 4. Patient resting in bed, no acute distress, remains alert. Maintenance fluids ongoing, Abx hung, will continue to monitor.
[2018-12-27] MEDS: Thiamine HCl 100 MG in NS 55 ML IVPB SCH (22:03)
[2018-12-27] MEDS ORDERED: Doxycycline Hyclate 100 MG in NS 110 ML IV SCH (23:00)
--- NOTE | 2018-12-27 23:00 | NUR ---
NURSE NOTES: Glucose 97, rate changed, Alg 4. Patient remains stable at this time. VS remains stable and afebrile. Per morning RN endorsement, DC insulin gtt at midnight and place patient on Q6 Accuchecks with NovoLog sliding scale as per Dr. Friedman's orders
[2018-12-28] VITALS (24 sets, daily range): BP systolic 79–120; BP diastolic 48–68
--- NOTE | 2018-12-28 | NUR ---
NURSE NOTES: Insulin gtt DC'd per the endorsement of RN am shift, as per Dr. Friedman orders. DC hourly Glucose checks and initiate glucose checks Q 6hrs with sliding scale. Midnight Glucose check was 89. Latest Gap Anion was 15. Patient remains stable at this time.
--- NOTE | 2018-12-28 02:00 | NUR ---
NURSE NOTES: Patient was able to get up and stretch a little. Minimal Assisted getting up. Patient able to ambulated with minimal Assistance within the unit. No SOB, VS stable.
--- NOTE | 2018-12-28 04:00 | NUR ---
NURSE NOTES: Patient able to ambulate to the bath room. Small BM. Patient was able to stretch and ambulate back to bed. Patient has steady gait when ambulating. VS has remained stable. No complain of dizziness when ambulating or when getting up.
[2018-12-28 05:27] LABS: BASOPHILS % (AUTO) 1.5 % (0.0-2.0); EOSINOPHILS % (AUTO) 0.5 % (0.0-3.0); HEMATOCRIT 33.5 % (37.0-47.0); LYMPHOCYTES % (AUTO) 35.6 % (20.0-45.0); MEAN CORPUSCULAR VOLUME 87 FL (80-99); MONOCYTES % (AUTO) 7.7 % (1.0-10.0); NEUTROPHILS % (AUTO) 54.8 % (45.0-75.0); PLATELET COUNT 277 K/UL (150-450); RED BLOOD COUNT 3.85 M/UL (4.20-5.40); RED CELL DISTRIBUTION WIDTH 13.5 % (11.6-14.8); WHITE BLOOD COUNT 7.9 K/UL (4.8-10.8)
[2018-12-28] MEDS: Zosyn 3.375gm q8h **Extended infusion IVPB SCH ×6 (05:29→22:12)
[2018-12-28] MEDS: NovoLOG Insulin Flexpen SUBQ SCH ×3 (05:29→17:23)
[2018-12-28 05:41] LABS: ALANINE AMINOTRANSFERASE 31 U/L (12-78); ALBUMIN 2.8 G/DL (3.4-5.0); ALBUMIN/GLOBULIN RATIO 0.8 (1.0-2.7); ALKALINE PHOSPHATASE 119 U/L (46-116); ANION GAP 18 mmol/L (5-15); ASPARTATE AMINO TRANSFERASE 51 U/L (15-37); BILIRUBIN,TOTAL 0.3 MG/DL (0.2-1.0); BLOOD UREA NITROGEN 2 mg/dL (7-18); CALCIUM 6.2 MG/DL (8.5-10.1); CARBON DIOXIDE 17 MMOL/L (21-32); CHLORIDE 102 MMOL/L (98-107); CREATININE 0.7 MG/DL (0.55-1.30); PHOSPHORUS 1.4 MG/DL (2.5-4.9); SODIUM 137 MMOL/L (136-145)
[2018-12-28 05:49] LABS: POTASSIUM 2.7 MMOL/L (3.5-5.1)
--- NOTE | 2018-12-28 05:59 | NUR ---
NURSE NOTES: Called Dr Elder bustamante labs. Potassium 2.7, Mg 1.2 and Phos of 1.4. Orders for 20mEq KCL PO X 1, Magnesium Sulfate 2 G, and 30mm Potassium Phosphate X , will nadia out orders. Addendum: 12/28/18 at 0641 by JAVIER TANG RN 30mm Potassium Phosphate X 1
[2018-12-28] MEDS ORDERED: NovoLOG Insulin Flexpen SUBQ SCH (06:30)
--- NOTE | 2018-12-28 07:00 | NUR ---
HAND-OFF: Report given to Navi VILLAGRAN.
--- NOTE | 2018-12-28 07:25 | NUR ---
NURSE NOTES: Report received from Renato VILLAGRAN. Pt alert and oriented x4, able to make needs known. Pt ST on night monitor, HR 100s. Pt on room air saturating 100%, no complaints of SOB. Aparicio noted and intact draining clear yellow urine to gravity. RAC 20G, LAC 20G and LH 24 G IVs noted and intact, D5 1/2 NS @ 125 cc/hr running. Safety measures in place with bed locked and in lowest position, side rails x3 up and bed alarm on. Will continue to monitor and continue plan of care.
--- NOTE | 2018-12-28 07:27 | NUR ---
RESPIRATORY NOTE: pt has order for bipap but refuses to wear. ABG order to follow later this morning. pt on RA with current spo2 of 100%. will cont to monitor. Addendum: 12/28/18 at 0728 by JIMBO LEBLANC RT bipap on s/b at bedside.
[2018-12-28] MEDS ORDERED: Potassium Phosphate 30 MM in NS 275 ML IV ONE (08:00)
[2018-12-28] MEDS: D5 1/2NS 1,000 ML IV SCH (08:31)
[2018-12-28] MEDS: Pantoprazole Inj IV SCH (08:32)
[2018-12-28] MEDS: Heparin 5000 units/ml inj SUBQ SCH ×2 (08:33→20:36)
--- NOTE | 2018-12-28 09:02 | NUR ---
NURSE NOTES: Bilateral lower extremity duplex completed, results are negative for DVT. Will continue to monitor.
--- NOTE | 2018-12-28 09:45 | General Progress Note ---
Assessment/Plan Assessment/Plan #DKA #severe metabolic anion gap acidosis -Pulmonary/Critical care following -Insulin drip stopped, continue Levemir -continue to monitor finger sticks -Continue IV fluids -replete potassium, magnesium, phosphorus aggressively as sugars and anion gap close -Diabetic teaching- will need insulin on discharge #Hypophosphatemia #Hypokalemia #Hypomagnesemia -replete electrolytes aggressively #acute respiratory failure-improving #leukocytosis-improving #sepsis -CXR- no infiltrates -likely related to severe metabolic acidosis -continue broad spectrum IV antibiotics -f/u cultures- blood, urine -O2 support- as needed -Pulmonary recs appreciated #N/V -antiemetics as needed DVT Prophylaxis: SCD's, heparin Code status: Full Disposition: Once the patient is stable to leave the hospital, I anticipate the patient will likely be discharged to the following environment:Home I spent 45 minutes on this patient's case, and 25 minutes was dedicated to counseling and/or care coordination. Subjective Date patient seen: Dec 28, 2018 Time patient seen: 07:39 ROS Limited/Unobtainable: No Constitutional: Denies: chills, fever HEENT: Denies: blurred vision Cardiovascular: Denies: chest pain, edema Respiratory: Denies: cough, orthopnea Gastrointestinal/Abdominal: Denies: abdomen distended, abdominal pain Genitourinary: Denies: burning Neurologic/Psychiatric: Denies: anxiety Allergies: Coded Allergies: No Known Allergies (Unverified , 12/26/18) Subjective Medicine follow up for DKA and possible sepsis. Insulin drip stopped last night. Objective Last 24 Hour Vital Signs Date Time Temp Pulse Resp B/P (MAP) Pulse Ox O2 Delivery O2 Flow Rate FiO2 12/28/18 09:00 99 26 92/54 (67) 100 12/28/18 08:00 98.3 98 20 92/59 (70) 100 12/28/18 08:00 Room Air 12/28/18 08:00 106 12/28/18 07:00 107 27 95/61 (72) 100 12/28/18 06:00 111 25 109/51 (70) 100 12/28/18 05:00 103 24 100/55 (70) 100 12/28/18 04:00 99.2 105 29 90/61 (71) 100 12/28/18 04:00 Room Air 12/28/18 04:00 105 12/28/18 03:00 109 27 99/55 (70) 99 12/28/18 02:00 108 25 101/60 (74) 100 12/28/18 01:00 106 29 120/60 (80) 100 12/28/18 00:00 98.9 102 22 114/61 (78) 100 12/28/18 00:00 103 12/28/18 00:00 Room Air 12/27/18 23:00 105 26 93/50 (64) 100 12/27/18 22:00 1.0 12/27/18 22:00 108 27 102/63 (76) 100 12/27/18 21:00 107 23 103/61 (75) 100 12/27/18 20:00 102 12/27/18 20:00 Room Air 12/27/18 20:00 98.6 103 25 98/66 (77) 100 12/27/18 19:00 105 21 100/70 (80) 100 12/27/18 18:00 105 21 98/68 (78) 100 12/27/18 17:00 106 21 110/71 (84) 100 12/27/18 16:00 98.2 103 22 106/74 (85) 100 12/27/18 16:00 Room Air 12/27/18 16:00 105 12/27/18 15:00 107 21 101/71 (81) 100 12/27/18 14:00 102 21 116/75 (89) 100 12/27/18 13:00 105 21 105/71 (82) 100 12/27/18 12:00 108 12/27/18 12:00 98.2 103 22 110/74 (86) 100 12/27/18 12:00 Room Air 12/27/18 11:00 102 21 121/71 (88) 100 12/27/18 10:00 105 21 116/68 (84) 100 Intake and Output 12/27/18 12/28/18 19:00 07:00 Intake Total 1746.0 ml 2726.5 ml Output Total 2450 ml 1850 ml Balance -704.0 ml 876.5 ml Intake Oral 350 ml 350 ml IV Total 1396.0 ml 2376.5 ml Output Urine Total 2450 ml 1850 ml # Bowel Movements 1 Laboratory Tests 12/28/18 04:00: White Blood Count 7.9, Red Blood Count 3.85L, Hemoglobin 11.0L, Hematocrit 33.5L , Mean Corpuscular Volume 87, Mean Corpuscular Hemoglobin 28.6, Mean Corpuscular Hemoglobin Concent 32.9, Red Cell Distribution Width 13.5, Platelet Count 277, Mean Platelet Volume 7.2, Neutrophils (%) (Auto) 54.8, Lymphocytes (% ) (Auto) 35.6, Monocytes (%) (Auto) 7.7, Eosinophils (%) (Auto) 0.5, Basophils ( %) (Auto) 1.5, Sodium Level 137, Potassium Level 2.7*L, Chloride Level 102, Carbon Dioxide Level 17L, Anion Gap 18H, Blood Urea Nitrogen 2L, Creatinine 0.7 , Estimat Glomerular Filtration Rate > 60, Glucose Level 195H, Calcium Level 6.2L, Phosphorus Level 1.4L, Magnesium Level 1.2L, Total Bilirubin 0.3, Aspartate Amino Transf (AST/SGOT) 51H, Alanine Aminotransferase (ALT/SGPT) 31, Alkaline Phosphatase 119H, Total Protein 6.5, Albumin 2.8L, Globulin 3.7, Albumin/Globulin Ratio 0.8L 12/28/18 08:26: Arterial Blood pH 7.432, Arterial Blood Partial Pressure CO2 26.0L, Arterial Blood Partial Pressure O2 100.2H, Arterial Blood HCO3 16.9*L, Arterial Blood Oxygen Saturation 97.5, Arterial Blood Base Excess -6.0L, Dennis Test Positive Height (Feet): 5 Height (Inches): 5.00 Weight (Pounds): 115 General Appearance: no apparent distress, alert EENT: normal ENT inspection Neck: supple, normal inspection Cardiovascular: normal rate, regular rhythm Respiratory/Chest: lungs clear, normal breath sounds, no respiratory distress Abdomen: non tender, soft Manjit Kauffman MD Dec 28, 2018 09:45
--- NOTE | 2018-12-28 09:54 | NUR ---
RADIOLOGY DEPT., CHEST X-RAY DONE.-P.DYE
--- NOTE | 2018-12-28 10:05 | NUR ---
NURSE NOTES: Pt resting comfortably. VSS. Will continue to monitor.
--- NOTE | 2018-12-28 11:33 | Diagnostic Imaging Report ---
Indication: Cough Technique: One view of the chest Comparison: 12/27/2018 Findings: There is some atelectasis at the left lung base. Lungs and pleural spaces are otherwise clear. The heart size is normal Impression: Left basilar atelectasis. No acute process otherwise
--- NOTE | 2018-12-28 11:42 | Pulmonolgy Critical Care Note ---
Critical Care - Asmt/Plan Problems: (1) Diabetic ketoacidosis (2) High anion gap metabolic acidosis (3) Metabolic acidosis (4) Diabetes Respiratory: monitor respiratory rate Cardiac: continue to monitor HR/BP Renal: F/U I&O - CHANGE TO D51/[id number], check electrolytes Infectious Disease: check cultures Gastrointestinal: other - PO as able Endocrine: monitor blood sugar, continue sliding scale insulin, other - Levamir 24 u qHS, check STAT repeat ABG and BMP - if gap open may need to go back on gtt Hematologic: monitor H/H Neurologic: keep patient comfortable Prophylaxis: Protonix, SCDs Disposition: keep in ICU - until confirmed that gap closed, if stable and cinthya PO can TTF Time Spent (Minutes): 40 Notes Reviewed: onsite case manager Discussed with: nurses, consultants Critical Care - Objective Last 24 Hour Vital Signs Date Time Temp Pulse Resp B/P (MAP) Pulse Ox O2 Delivery O2 Flow Rate FiO2 12/28/18 11:00 102 25 100/65 (77) 100 12/28/18 10:00 101 22 92/58 (69) 100 12/28/18 09:00 99 26 92/54 (67) 100 12/28/18 08:00 98.3 98 20 92/59 (70) 100 12/28/18 08:00 Room Air 12/28/18 08:00 106 12/28/18 07:00 107 27 95/61 (72) 100 12/28/18 06:00 111 25 109/51 (70) 100 12/28/18 05:00 103 24 100/55 (70) 100 12/28/18 04:00 99.2 105 29 90/61 (71) 100 12/28/18 04:00 Room Air 12/28/18 04:00 105 12/28/18 03:00 109 27 99/55 (70) 99 12/28/18 02:00 108 25 101/60 (74) 100 12/28/18 01:00 106 29 120/60 (80) 100 12/28/18 00:00 98.9 102 22 114/61 (78) 100 12/28/18 00:00 103 12/28/18 00:00 Room Air 12/27/18 23:00 105 26 93/50 (64) 100 12/27/18 22:00 1.0 12/27/18 22:00 108 27 102/63 (76) 100 12/27/18 21:00 107 23 103/61 (75) 100 12/27/18 20:00 102 12/27/18 20:00 Room Air 12/27/18 20:00 98.6 103 25 98/66 (77) 100 12/27/18 19:00 105 21 100/70 (80) 100 12/27/18 18:00 105 21 98/68 (78) 100 12/27/18 17:00 106 21 110/71 (84) 100 12/27/18 16:00 98.2 103 22 106/74 (85) 100 12/27/18 16:00 Room Air 12/27/18 16:00 105 12/27/18 15:00 107 21 101/71 (81) 100 12/27/18 14:00 102 21 116/75 (89) 100 12/27/18 13:00 105 21 105/71 (82) 100 12/27/18 12:00 108 12/27/18 12:00 98.2 103 22 110/74 (86) 100 12/27/18 12:00 Room Air Status: awake Condition: improving HEENT: atraumatic, normocephalic Neck: full ROM Lungs: clear Heart: HR/BP stable Abdomen: soft Extremities: no C/C/E Micro: Microbiology Date/Time Source Procedure Growth Status 12/26/18 16:30 Blood Blood Culture - Preliminary NO GROWTH AFTER 24 HOURS Resulted 12/26/18 16:30 Blood Blood Culture - Preliminary NO GROWTH AFTER 24 HOURS Resulted 12/26/18 18:10 Rectum Received Accucheck: 232 Blood Sugars: BS not controlled Critical Care - Subjective ROS Limited/Unobtainable: Yes ICU Day: 2 Interval Events: Off gtt but gap open Condition: improving IV Access: peripheral EKG Rhythm: Sinus Tachycardia FI02: 21 Sputum Amount: None Fluids: D51/2NS@125 I&O: Intake and Output 12/27/18 12/28/18 19:00 07:00 Intake Total 1746.0 ml 2726.5 ml Output Total 2450 ml 1850 ml Balance -704.0 ml 876.5 ml Intake Oral 350 ml 350 ml IV Total 1396.0 ml 2376.5 ml Output Urine Total 2450 ml 1850 ml # Bowel Movements 1 Subjective: No F/C/CP/SOB/N/V/D/C/abd pain/urinary complaints CXR: atx L base Labs: Laboratory Tests Test 12/28/18 04:00 12/28/18 08:26 White Blood Count 7.9 K/UL (4.8-10.8) Red Blood Count 3.85 M/UL (4.20-5.40) L Hemoglobin 11.0 G/DL (12.0-16.0) L Hematocrit 33.5 % (37.0-47.0) L Mean Corpuscular Volume 87 FL (80-99) Mean Corpuscular Hemoglobin 28.6 PG (27.0-31.0) Mean Corpuscular Hemoglobin Concent 32.9 G/DL (32.0-36.0) Red Cell Distribution Width 13.5 % (11.6-14.8) Platelet Count 277 K/UL (150-450) Mean Platelet Volume 7.2 FL (6.5-10.1) Neutrophils (%) (Auto) 54.8 % (45.0-75.0) Lymphocytes (%) (Auto) 35.6 % (20.0-45.0) Monocytes (%) (Auto) 7.7 % (1.0-10.0) Eosinophils (%) (Auto) 0.5 % (0.0-3.0) Basophils (%) (Auto) 1.5 % (0.0-2.0) Sodium Level 137 MMOL/L (136-145) Potassium Level 2.7 MMOL/L (3.5-5.1) *L Chloride Level 102 MMOL/L (98-107) Carbon Dioxide Level 17 MMOL/L (21-32) L Anion Gap 18 mmol/L (5-15) H Blood Urea Nitrogen 2 mg/dL (7-18) L Creatinine 0.7 MG/DL (0.55-1.30) Estimat Glomerular Filtration Rate > 60 mL/min (>60) Glucose Level 195 MG/DL (74-106) H Calcium Level 6.2 MG/DL (8.5-10.1) L Phosphorus Level 1.4 MG/DL (2.5-4.9) L Magnesium Level 1.2 MG/DL (1.8-2.4) L Total Bilirubin 0.3 MG/DL (0.2-1.0) Aspartate Amino Transf (AST/SGOT) 51 U/L (15-37) H Alanine Aminotransferase (ALT/SGPT) 31 U/L (12-78) Alkaline Phosphatase 119 U/L (46-116) H Total Protein 6.5 G/DL (6.4-8.2) Albumin 2.8 G/DL (3.4-5.0) L Globulin 3.7 g/dL Albumin/Globulin Ratio 0.8 (1.0-2.7) L Arterial Blood pH 7.432 (7.350-7.450) Arterial Blood Partial Pressure CO2 26.0 mmHg (35.0-45.0) L Arterial Blood Partial Pressure O2 100.2 mmHg (75.0-100.0) H Arterial Blood HCO3 16.9 mmol/L (22.0-26.0) *L Arterial Blood Oxygen Saturation 97.5 % (95-100) Arterial Blood Base Excess -6.0 (-2-2) L Dennis Test Positive Bharat Manuel MD Dec 28, 2018 11:42
--- NOTE | 2018-12-28 12:00 | NUR ---
NURSE NOTES: Dr Manuel here to see pt. Stat CMP and ABG ordered and KCL addered to maintenance IVF. Will continue to monitor.
[2018-12-28 12:30] LABS: ALANINE AMINOTRANSFERASE 36 U/L (12-78); ALBUMIN 2.6 G/DL (3.4-5.0); ALBUMIN/GLOBULIN RATIO 0.7 (1.0-2.7); ALKALINE PHOSPHATASE 114 U/L (46-116); ANION GAP 14 mmol/L (5-15); ASPARTATE AMINO TRANSFERASE 72 U/L (15-37); BILIRUBIN,TOTAL 0.2 MG/DL (0.2-1.0); BLOOD UREA NITROGEN 1 mg/dL (7-18); CARBON DIOXIDE 18 MMOL/L (21-32); CHLORIDE 105 MMOL/L (98-107); CREATININE 0.6 MG/DL (0.55-1.30); POTASSIUM 3.7 MMOL/L (3.5-5.1); SODIUM 137 MMOL/L (136-145)
[2018-12-28 12:41] LABS: PHOSPHORUS 3.8 MG/DL (2.5-4.9)
[2018-12-28] MEDS: D5 1/2NS w/KCl 20mEq 1,000 ML IV SCH ×2 (13:51→20:30)
--- NOTE | 2018-12-28 15:05 | NUR ---
NURSE NOTES: Pt taken to CT per Dr Manuel order. VSS. Will continue to monitor.
--- NOTE | 2018-12-28 17:40 | NUR ---
NURSE NOTES: Pt eating dinner comfortably. VSS. Will continue to monitor.
--- NOTE | 2018-12-28 18:41 | Diagnostic Imaging Report ---
CLINICAL INDICATION:Weight loss, ketoacidosis, metabolic acidosis, pain TECHNIQUE: Patient ingested oral contrast . No IV contrast per referring physician request Spiral acquisitions obtained through the chest, abdomen, and pelvis. Multiplanar reconstructions were generated. Total dose length product 817.83 mGycm. CTDIvol(s) 13.12 mGy. Radiation dose was minimized using automated exposure control COMPARISON: none FINDINGS Chest: Minimal linear scarring or atelectasis is seen at the lung bases, left greater than right. The lungs and pleural spaces are otherwise clear. The heart size is normal. There is minimal anterior wall pericardial thickening versus fluid. No mediastinal or hilar mass or adenopathy. The included portion of the thyroid is unremarkable. No axillary or chest wall mass or adenopathy. The bones are unremarkable except for mild thoracic dextroscoliotic deformity. The esophagus is unremarkable. Abdomen pelvis: The appendix is normal. Moderate amount of retained stool is noted throughout the colon and the colon is diffusely upper limits of normal in caliber. Ingested contrast has traversed the entirety of the small bowel and is seen within the cecum. No small bowel distention or small bowel wall thickening is evident. The stomach and duodenum are unremarkable. Lack of IV contrast limits assessment of solid organs. The gallbladder is surgically absent. The liver is grossly unremarkable. The pancreas demonstrates calcifications in the pancreatic head, is somewhat atrophic. The spleen, adrenals, kidneys are unremarkable. The uterus and adnexal structures are unremarkable. No pelvic mass or adenopathy. The bladder is empty, contains a Aparicio catheter. The bones are unremarkable IMPRESSION: No acute abnormality Upper limits of normal stool-filled colon, appearance suggestive of mild colonic atony Surgically absent gallbladder Empty bladder with Aparicio catheter Mild thoracic extra scoliotic deformity Minimal anterior wall pericardial thickening versus fluid Minimal basilar pulmonary atelectasis or scarring The CT scanner at [facility] is accredited by the [employer] and the scans are performed using protocols designed to limit radiation exposure to as low as reasonably achievable to attain images of sufficient resolution adequate for diagnostic evaluation.
--- NOTE | 2018-12-28 19:04 | NUR ---
HAND-OFF: Report given to Renato VILLAGRAN.
--- NOTE | 2018-12-28 19:20 | NUR ---
NURSE NOTES: Report received from Мария Dos Santos RN. Pt alert and oriented x4, able to make needs known. Pt ST on cardiac technician, HR in the 100s. Pt on room air saturating 100%, no complaints of SOB. Aparicio noted and intact draining clear yellow urine to gravity. RAC 20G, LAC 20G and LH 24 G IVs noted and intact, D5 1/2 NS @ 125 cc/hr running. Safety measures in place with bed locked and in lowest position, side rails x3 up and bed alarm on. Will continue to monitor and continue plan of care.
--- NOTE | 2018-12-28 19:24 | Cardiology Report ---
APPROVED REPORT EKG Measurement Heart [id number] Sinus tachycardia Possible Left atrial enlargement Borderline ECG
--- NOTE | 2018-12-28 20:00 | NUR ---
NURSE NOTES: Patient able to ambulate to the bathroom. Had 1 normal BM. Patient walked the unit with RN at her side. No SOB or dizziness when asked patient. Patient walked back to bed and rested.
[2018-12-28] MEDS: Levemir Flexpen SUBQ SCH (20:34)
--- NOTE | 2018-12-28 22:00 | NUR ---
NURSE NOTES: L and R both 20G in the AC IV's infiltrated. Patient still has a 24G on the L hand that is working just fine. Will use the L hand IV for now. Patient resting in bed comfortably, not complaining of any pain at the moment. Vitals remains stable, afebrile. NAD, patient putting out good urine output.
[2018-12-28] MEDS: Thiamine HCl 100 MG in NS 55 ML IVPB SCH (22:12)
[2018-12-29] VITALS (20 sets, daily range): BP systolic 80–127; BP diastolic 48–72
--- NOTE | 2018-12-29 | NUR ---
NURSE NOTES: Glucose is 233, coverage will we provided. Patient remains alert and oriented. No sign of distress noted, L hand IV line remains working fine. No new acute events.
[2018-12-29] MEDS: NovoLOG Insulin Flexpen SUBQ SCH ×5 (00:51→23:56)
--- NOTE | 2018-12-29 02:00 | NUR ---
NURSE NOTES: Patient sleeping, no cute distress at this time, VSS.
--- NOTE | 2018-12-29 04:00 | NUR ---
NURSE NOTES: Labs drawn and sent to lab, Patient got up to stretch and ambulate a little with RN at her side and then went back to her bed
[2018-12-29 05:31] LABS: BASOPHILS % (AUTO) 1.1 % (0.0-2.0); EOSINOPHILS % (AUTO) 0.8 % (0.0-3.0); HEMATOCRIT 34.5 % (37.0-47.0); HEMOGLOBIN 11.4 G/DL (12.0-16.0); MEAN CORPUSCULAR VOLUME 86 FL (80-99); MONOCYTES % (AUTO) 7.2 % (1.0-10.0); NEUTROPHILS % (AUTO) 47.9 % (45.0-75.0); PLATELET COUNT 277 K/UL (150-450); RED BLOOD COUNT 4.03 M/UL (4.20-5.40); WHITE BLOOD COUNT 7.1 K/UL (4.8-10.8)
[2018-12-29] MEDS: Zosyn 3.375gm q8h **Extended infusion IVPB SCH ×4 (05:45→12:49)
[2018-12-29] MEDS: D5 1/2NS w/KCl 20mEq 1,000 ML IV SCH ×4 (05:45→23:59)
[2018-12-29 06:04] LABS: ANION GAP 14 mmol/L (5-15); BLOOD UREA NITROGEN 1 mg/dL (7-18); CARBON DIOXIDE 21 MMOL/L (21-32); CHLORIDE 107 MMOL/L (98-107); CREATININE 0.7 MG/DL (0.55-1.30); PHOSPHORUS 2.1 MG/DL (2.5-4.9); SODIUM 141 MMOL/L (136-145)
[2018-12-29 06:15] LABS: POTASSIUM 2.7 MMOL/L (3.5-5.1)
[2018-12-29 06:16] LABS: CALCIUM 5.8 MG/DL (8.5-10.1)
--- NOTE | 2018-12-29 06:48 | NUR ---
NURSE NOTES: Notified Dr. Manuel drawer in stitch bonding machine MD regarding patients Potassium: 2.7; Calcium: 5.8, Phosphorus: 2.1 and Magnesium: 1.4 Meteorology Instructor MD said he would relay/notify Dr. Manuel regarding AM morning labs. Patient remains stable at this time, will continue to monitor. Patient remains alert and oriented.
--- NOTE | 2018-12-29 07:30 | NUR ---
NURSE NOTES: Received report from Renato VILLAGRAN. Pt is awake, alert, oriented x4, sitting up in bed, having breakfast. On room air with no respiratory distress. Lung sounds are clear. Abdomen is distended/round, nontender to touch. Skin is intact. IV access on left hand #24G and left wrist #20G, infusing D5 0.45%NS with KCL 20meq at 125mL/hour. No edema present on extremities. Aparicio catheter is in place and draining clear/yellow urine. Bed is locked with three side rails up and call light within easy reach. Will continue with plan of care per MD orders and protocol.
--- NOTE | 2018-12-29 08:30 | NUR ---
NURSE NOTES: Pt was assessed by Dr Choe. MD informed regarding K 2.7, Mag 1.4, Phos 2.1 and Ca 5.8. Orders received for KDur 40meq x1, and Mag IV, replacement. Will follow as ordered. Pt had BM this morning, renetta/teresa. Will continue to monitor.
[2018-12-29] MEDS: Pantoprazole Inj IV SCH (08:59)
--- NOTE | 2018-12-29 09:00 | NUR ---
NURSE NOTES: Methods Specialist at beside for nutrition consult. Pt is in stable condition, resting in semi-triana's position.
[2018-12-29] MEDS: Heparin 5000 units/ml inj SUBQ SCH ×2 (09:04→21:15)
--- NOTE | 2018-12-29 10:22 | NUR ---
RD ASSESSMENT & RECOMMENDATIONS SEE CARE ACTIVITY FOR COMPLETE ASSESSMENT DAILY ESTIMATED NEEDS: Needs based on DM 51.8kg 25-30 kcals/kg 1246-3731 total kcals 1-1.5 g protein/kg 52-78 g total protein 25-30 mL/kg 2894-8006 total fluid mLs NUTRITION DIAGNOSIS: Altered nutrition related lab values r/t DKA as evidenced by A1C 16.0, BG >600 on adm, w/ Uglu and U-ketones +4, and (+) acetone. CURRENT DIET:CCHO MED PO DIET RECOMMENDATIONS: *[facility]HO LOW* ADDITIONAL RECOMMENDATIONS: 1) Obtain a standing scale-> pt reports severe 24#wt loss x1 mo 2) Add B-complex daily for max glucose metabolism 3) Check lytes daily, replete as needed
--- NOTE | 2018-12-29 10:51 | General Progress Note ---
Assessment/Plan Assessment/Plan #DKA #severe metabolic anion gap acidosis, gap closed -Pulmonary/Critical care following -continue Levemir -continue to monitor finger sticks -Continue IV fluids -Diabetic teaching- will need insulin on discharge #Hypophosphatemia #Hypokalemia #Hypomagnesemia -replete electrolytes aggressively and monitor closely #acute respiratory failure-improving #leukocytosis-improving #sepsis -CXR- no infiltrates -likely related to severe metabolic acidosis -continue broad spectrum IV antibiotics -f/u cultures- blood, urine -O2 support- as needed -Pulmonary recs appreciated #N/V -antiemetics as needed DVT Prophylaxis: SCD's, heparin Code status: Full Disposition: Once the patient is stable to leave the hospital, I anticipate the patient will likely be discharged to the following environment:Home I spent 45 minutes on this patient's case, and 25 minutes was dedicated to counseling and/or care coordination. Subjective Date patient seen: Dec 29, 2018 Time patient seen: 08:00 Constitutional: Denies: chills, fever Cardiovascular: Denies: chest pain Respiratory: Denies: cough Gastrointestinal/Abdominal: Denies: abdomen distended Genitourinary: Denies: burning Neurologic/Psychiatric: Denies: anxiety Endocrine: Denies: excessive sweating Allergies: Coded Allergies: No Known Allergies (Unverified , 12/26/18) Subjective Medicine follow up for DKA and possible sepsis. Remains off insulin drip. Severe electrolyte deficiencies noted. Patient asking to have psychiatric meds restarted Objective Last 24 Hour Vital Signs Date Time Temp Pulse Resp B/P (MAP) Pulse Ox O2 Delivery O2 Flow Rate FiO2 12/29/18 08:00 98.1 97 25 94/66 (75) 100 12/29/18 08:00 96 12/29/18 07:00 103 25 99/59 (72) 99 12/29/18 06:00 98 27 127/71 (89) 99 12/29/18 05:00 101 19 104/60 (75) 98 12/29/18 04:00 98 12/29/18 04:00 Room Air 12/29/18 04:00 99.3 99 24 96/64 (75) 100 12/29/18 03:00 98 24 114/64 (81) 98 12/29/18 02:00 106 24 96/65 (75) 100 12/29/18 01:00 100 23 88/53 (65) 100 12/29/18 00:00 99.0 100 27 80/48 (59) 99 12/29/18 00:00 Room Air 12/29/18 00:00 100 12/28/18 23:00 100 30 84/51 (62) 100 12/28/18 22:00 100 27 97/63 (74) 100 12/28/18 22:00 1.0 12/28/18 21:00 107 30 90/56 (67) 100 12/28/18 20:00 109 12/28/18 20:00 98.2 103 27 79/48 (58) 100 12/28/18 20:00 Room Air 12/28/18 19:00 102 28 83/48 (60) 100 12/28/18 18:00 101 22 100/61 (74) 100 12/28/18 17:00 103 24 98/64 (75) 100 12/28/18 16:00 104 12/28/18 16:00 Room Air 12/28/18 16:00 98.3 103 23 106/68 (81) 100 12/28/18 15:00 103 28 87/57 (67) 100 12/28/18 14:00 101 30 96/62 (73) 100 12/28/18 13:00 103 32 99/65 (76) 100 12/28/18 12:00 98.5 106 27 96/65 (75) 100 12/28/18 12:00 Room Air 12/28/18 12:00 102 12/28/18 11:00 102 25 100/65 (77) 100 Intake and Output 12/28/18 12/29/18 19:00 07:00 Intake Total 1085.0 ml 1694.2 ml Output Total 1550 ml 1700 ml Balance -465.0 ml -5.8 ml Intake Oral 100 ml IV Total 1085.0 ml 1594.2 ml Output Urine Total 1550 ml 1700 ml # Bowel Movements 3 1 Laboratory Tests 12/28/18 12:02: Sodium Level 137, Potassium Level 3.7, Chloride Level 105, Carbon Dioxide Level 18L, Anion Gap 14, Blood Urea Nitrogen 1L, Creatinine 0.6, Estimat Glomerular Filtration Rate > 60, Glucose Level 196H, Calcium Level 6.0L, Phosphorus Level 3.8, Magnesium Level 1.8, Total Bilirubin 0.2, Aspartate Amino Transf (AST/SGOT ) 72H, Alanine Aminotransferase (ALT/SGPT) 36, Alkaline Phosphatase 114, Total Protein 6.2L, Albumin 2.6L, Globulin 3.6, Albumin/Globulin Ratio 0.7L 12/28/18 12:15: Arterial Blood pH 7.413, Arterial Blood Partial Pressure CO2 27.3L, Arterial Blood Partial Pressure O2 87.7, Arterial Blood HCO3 17.0*L, Arterial Blood Oxygen Saturation 97.0, Arterial Blood Base Excess -6.3L, Dennis Test Positive 12/29/18 04:30: Sodium Level 141, Potassium Level 2.7*L, Chloride Level 107, Carbon Dioxide Level 21, Anion Gap 14, Blood Urea Nitrogen 1L, Creatinine 0.7, Estimat Glomerular Filtration Rate > 60, Glucose Level 71#L, Calcium Level 5.8*L, Phosphorus Level 2.1L, Magnesium Level 1.4L, White Blood Count 7.1, Red Blood Count 4.03L, Hemoglobin 11.4L, Hematocrit 34.5L, Mean Corpuscular Volume 86, Mean Corpuscular Hemoglobin 28.4, Mean Corpuscular Hemoglobin Concent 33.1, Red Cell Distribution Width 13.0, Platelet Count 277, Mean Platelet Volume 7.7, Neutrophils (%) (Auto) 47.9, Lymphocytes (%) (Auto) 43.0, Monocytes (%) (Auto) 7.2, Eosinophils (%) (Auto) 0.8, Basophils (%) (Auto) 1.1 Height (Feet): 5 Height (Inches): 5.00 Weight (Pounds): 115 General Appearance: no apparent distress, alert EENT: PERRL/EOMI Neck: non-tender, normal inspection Cardiovascular: normal peripheral pulses, normal rate Respiratory/Chest: chest wall non-tender, lungs clear, normal breath sounds Abdomen: normal bowel sounds, non tender, soft Manjit Kauffman MD Dec 29, 2018 10:51
--- NOTE | 2018-12-29 11:00 | NUR ---
NURSE NOTES: Pt reported history of allergy to PCN with reaction of welts on skin; report was updated in chart, and pharmacist informed. Pt has been receiving Zosyn IV since admission, which per pharmacist contains ingredient in the PCN family. Pt has and continues to tolerate Zosyn with no reaction, skin integrity and vital signs continue to be within normal limits. Addendum: 12/29/18 at 1544 by LOTUS HYATT RN Per Gabo from pharmacy, it is safe to continue with Zosyn treatment since pt has not no reaction.
--- NOTE | 2018-12-29 11:03 | Diagnostic Imaging Report ---
APPROVED REPORT CPT Code: 76987 Present Symptoms Comments: Screening BILATERAL: Imaging reveals a patent deep venous system bilaterally. There is no evidence of thrombus within the common femoral, superficial femoral, popliteal or tibial segments. The greater saphenous veins are within normal limits. Doppler indicates normal spontaneous flow within these segments.
--- NOTE | 2018-12-29 12:15 | NUR ---
NURSE NOTES: Pt is resting in semi-triana's position, watching TV. On room air with no respiratory distress. Denies any pain or discomfort. Continues to receive D5 0.45%NS with KCL 20meq at 125mL/hour. IV access on left hand and left wrist, patent/intact. No edema present on extremities. Aparicio catheter is draining clear/yellow urine with hourly output of 100-200ml/hour. Electrolytes were replaced as ordered. Pt received Mag 3gm IV and KDur 40meq POx1. Order in place to transfer pt to Telemetry, waiting for bed-availability. Per Dr Choe, pt will still need cardiac monitoring.
--- NOTE | 2018-12-29 14:19 | Pulmonolgy Critical Care Note ---
Critical Care - Asmt/Plan Problems: (1) Diabetic ketoacidosis (2) High anion gap metabolic acidosis (3) Metabolic acidosis (4) Diabetes Respiratory: monitor respiratory rate Cardiac: continue to monitor HR/BP Renal: keep IV fluid, check electrolytes, other - replete K and Ca++ Infectious Disease: check cultures, continue antibiotics Gastrointestinal: other - PO as able Endocrine: monitor blood sugar, continue sliding scale insulin, other - Levemir 24 qHS, consider ENDO eval Neurologic: keep patient comfortable Prophylaxis: Protonix, Heparin Disposition: transfer to - [facility] Time Spent (Minutes): 30 Notes Reviewed: soaking room operator Discussed with: nurses Critical Care - Objective Last 24 Hour Vital Signs Date Time Temp Pulse Resp B/P (MAP) Pulse Ox O2 Delivery O2 Flow Rate FiO2 12/29/18 14:00 100 25 94/61 (72) 100 12/29/18 13:00 103 19 95/66 (76) 100 12/29/18 12:00 107 12/29/18 12:00 Room Air 12/29/18 12:00 98.3 104 17 108/66 (80) 100 12/29/18 11:00 98 21 116/69 (85) 100 12/29/18 10:00 99 21 110/69 (83) 100 12/29/18 09:00 100 20 87/52 (64) 100 12/29/18 08:00 98.1 97 25 94/66 (75) 100 12/29/18 08:00 Room Air 12/29/18 08:00 96 12/29/18 07:00 103 25 99/59 (72) 99 12/29/18 06:00 98 27 127/71 (89) 99 12/29/18 05:00 101 19 104/60 (75) 98 12/29/18 04:00 98 12/29/18 04:00 Room Air 12/29/18 04:00 99.3 99 24 96/64 (75) 100 12/29/18 03:00 98 24 114/64 (81) 98 12/29/18 02:00 106 24 96/65 (75) 100 12/29/18 01:00 100 23 88/53 (65) 100 12/29/18 00:00 99.0 100 27 80/48 (59) 99 12/29/18 00:00 Room Air 12/29/18 00:00 100 12/28/18 23:00 100 30 84/51 (62) 100 12/28/18 22:00 100 27 97/63 (74) 100 12/28/18 22:00 1.0 12/28/18 21:00 107 30 90/56 (67) 100 12/28/18 20:00 109 12/28/18 20:00 98.2 103 27 79/48 (58) 100 12/28/18 20:00 Room Air 12/28/18 19:00 102 28 83/48 (60) 100 12/28/18 18:00 101 22 100/61 (74) 100 12/28/18 17:00 103 24 98/64 (75) 100 12/28/18 16:00 104 12/28/18 16:00 Room Air 12/28/18 16:00 98.3 103 23 106/68 (81) 100 12/28/18 15:00 103 28 87/57 (67) 100 Status: awake Condition: improving HEENT: atraumatic Neck: full ROM Lungs: clear Heart: HR/BP stable Abdomen: soft, non-tender, active bowel sounds Extremities: no C/C/E Micro: Microbiology Date/Time Source Procedure Growth Status 12/26/18 16:30 Blood Blood Culture - Preliminary NO GROWTH AFTER 48 HOURS Resulted 12/26/18 16:30 Blood Blood Culture - Preliminary NO GROWTH AFTER 48 HOURS Resulted 12/26/18 18:10 Nasal Nares MRSA Culture - Final NO METHICILLIN RESISTANT STAPH AUREUS... Complete 12/26/18 18:10 Rectum - Final NO CARBAPENEM-RESISTANT ENTEROBACTERI... Complete 12/26/18 18:10 Rectum VRE Culture - Final NO VANCOMYCIN RESISTANT ENTEROCOCCUS ... Complete Accucheck: 215 Blood Sugars: BS controlled Critical Care - Subjective ROS Limited/Unobtainable: Yes ICU Day: 3 Interval Events: AFVSS on RA Gap closed K repleted, Ca low CT CAP without sig abnl No F/C/CP/SOB/N/V/D/C Wilmer PO Condition: improving EKG Rhythm: Sinus Rhythm FI02: 21 Sputum Amount: None Fluids: D51/8OZw50KOP@125 I&O: Intake and Output 12/28/18 12/29/18 19:00 07:00 Intake Total 1085.0 ml 1694.2 ml Output Total 1550 ml 1700 ml Balance -465.0 ml -5.8 ml Intake Oral 100 ml IV Total 1085.0 ml 1594.2 ml Output Urine Total 1550 ml 1700 ml # Bowel Movements 3 1 Subjective: No F/C/CP/SOB/N/V/D/C/abd pain/urinary complaints Labs: Laboratory Tests Test 12/29/18 04:30 White Blood Count 7.1 K/UL (4.8-10.8) Red Blood Count 4.03 M/UL (4.20-5.40) L Hemoglobin 11.4 G/DL (12.0-16.0) L Hematocrit 34.5 % (37.0-47.0) L Mean Corpuscular Volume 86 FL (80-99) Mean Corpuscular Hemoglobin 28.4 PG (27.0-31.0) Mean Corpuscular Hemoglobin Concent 33.1 G/DL (32.0-36.0) Red Cell Distribution Width 13.0 % (11.6-14.8) Platelet Count 277 K/UL (150-450) Mean Platelet Volume 7.7 FL (6.5-10.1) Neutrophils (%) (Auto) 47.9 % (45.0-75.0) Lymphocytes (%) (Auto) 43.0 % (20.0-45.0) Monocytes (%) (Auto) 7.2 % (1.0-10.0) Eosinophils (%) (Auto) 0.8 % (0.0-3.0) Basophils (%) (Auto) 1.1 % (0.0-2.0) Sodium Level 141 MMOL/L (136-145) Potassium Level 2.7 MMOL/L (3.5-5.1) *L Chloride Level 107 MMOL/L (98-107) Carbon Dioxide Level 21 MMOL/L (21-32) Anion Gap 14 mmol/L (5-15) Blood Urea Nitrogen 1 mg/dL (7-18) L Creatinine 0.7 MG/DL (0.55-1.30) Estimat Glomerular Filtration Rate > 60 mL/min (>60) Glucose Level 71 MG/DL (74-106) #L Calcium Level 5.8 MG/DL (8.5-10.1) *L Phosphorus Level 2.1 MG/DL (2.5-4.9) L Magnesium Level 1.4 MG/DL (1.8-2.4) L Bharat Manuel MD Dec 29, 2018 14:19
--- NOTE | 2018-12-29 14:30 | NUR ---
NURSE NOTES: Pt was seen/assessed by Dr Manuel. MD aware of Calcium level 5.8 and Phosphorus 2.1 from this morning's labdraw. No new orders given. Per Dr Manuel, pt will be seen by Dr Blanton for new consult.
--- NOTE | 2018-12-29 17:00 | NUR ---
TRANSFER TO FLOOR: Patient transferred to Telemetry Rm 206-1 from ICU bedD via hospital bed. Tele monitor placed on pt. Report given to receiving nurse [place] RN. Pt's belonging's list checked and signed with the receiving nurse in front of the pt. Skin is intact. Pt was transferred in stable condition, while being monitored on cardiac-monitor. Endorsed plan of care.
--- NOTE | 2018-12-29 17:05 | NUR ---
NURSE NOTES: Pt received from TYSHAWN Mosher alert and oriented x4 with no acute s/s of distress. quality assurance monitor chassis on - Sinus Rhythm (98 HR). VSS stable. Aparicio catheter draining to clear, yellow urine (150 mL). IV site asymptomatic and patent, running to D5 1/2 NS with 20 of KCl at 125. Belongings signed with transferring RN. No wounds noted upon transfer. Bed in lowest position, call light and belongings within reach.
--- NOTE | 2018-12-29 19:05 | NUR ---
HAND-OFF: Report given to Jonah Oliver RN.
--- NOTE | 2018-12-29 19:10 | NUR ---
NURSE NOTES: Report received from TYSHAWN Holland. Observed pt lying on the bed, awake, denies any pain at this time. A/O x4. SR with pearl glue operator. Room air without any signs of sob. IV on L H 24 G, running D5 1/2NS 20meq KCL, at 125cc/hr. F/C intact and draining well. Bed in the lowest position. Side rails up x2. Call light within reach. Will continue to monitor.
[2018-12-29] MEDS ORDERED: Amitriptyline 100mg tab ORAL SCH (21:00)
[2018-12-29] MEDS: Piperacillin/Tazobactam 3.375 GM in NS 110 ML IVPB SCH (21:13)
[2018-12-29] MEDS: Levemir Flexpen SUBQ SCH (21:16)
--- NOTE | 2018-12-29 22:10 | Consultation ---
History of Present Illness General Chief Complaint: General Complaint Present Illness Allergies: Coded Allergies: PENICILLINS (Verified Allergy, Unknown, Hives, 12/29/18) Patient reported PCN allergy, but has tolerated Zosyn for past 48h no problem Medication History Scheduled Amitriptyline HCl (Amitriptyline HCl), 150 MG ORAL BEDTIME, (Reported) Metformin HCl (Metformin HCl), 500 MG PO TID, (Reported) No Known Medications* (NKM - No Known Medications*), 0 ., (Reported) Risperidone* (Risperdal*), 2 MG ORAL DAILY, (Reported) Patient History Healthcare decision maker Resuscitation status Full Code Advanced Directive on File No Physical Exam Last 24 Hour Vital Signs Date Time Temp Pulse Resp B/P (MAP) Pulse Ox O2 Delivery O2 Flow Rate FiO2 12/29/18 22:00 98/67 (77) 12/29/18 20:00 Room Air 12/29/18 20:00 98.4 106 17 88/65 (73) 98 12/29/18 17:05 97.9 112 18 104/72 (83) 98 12/29/18 16:00 98.3 103 17 96/60 (72) 100 12/29/18 16:00 Room Air 12/29/18 16:00 102 12/29/18 15:00 106 20 92/59 (70) 100 12/29/18 14:00 100 25 94/61 (72) 100 12/29/18 13:00 103 19 95/66 (76) 100 12/29/18 12:00 107 12/29/18 12:00 Room Air 12/29/18 12:00 98.3 104 17 108/66 (80) 100 12/29/18 11:00 98 21 116/69 (85) 100 12/29/18 10:00 99 21 110/69 (83) 100 12/29/18 09:00 100 20 87/52 (64) 100 12/29/18 08:00 98.1 97 25 94/66 (75) 100 12/29/18 08:00 Room Air 12/29/18 08:00 96 12/29/18 07:00 103 25 99/59 (72) 99 12/29/18 06:00 98 27 127/71 (89) 99 12/29/18 05:00 101 19 104/60 (75) 98 12/29/18 04:00 98 12/29/18 04:00 Room Air 12/29/18 04:00 99.3 99 24 96/64 (75) 100 12/29/18 03:00 98 24 114/64 (81) 98 12/29/18 02:00 106 24 96/65 (75) 100 12/29/18 01:00 100 23 88/53 (65) 100 12/29/18 00:00 99.0 100 27 80/48 (59) 99 12/29/18 00:00 Room Air 12/29/18 00:00 100 12/28/18 23:00 100 30 84/51 (62) 100 Intake and Output 12/28/18 12/29/18 18:59 06:59 Intake Total 1130.0 ml 1751.0 ml Output Total 1550 ml 1725 ml Balance -420.0 ml 26.0 ml Intake Oral 100 ml IV Total 1130.0 ml 1651.0 ml Output Urine Total 1550 ml 1725 ml # Bowel Movements 3 1 Laboratory Tests Test 12/29/18 04:30 White Blood Count 7.1 K/UL (4.8-10.8) Red Blood Count 4.03 M/UL (4.20-5.40) L Hemoglobin 11.4 G/DL (12.0-16.0) L Hematocrit 34.5 % (37.0-47.0) L Mean Corpuscular Volume 86 FL (80-99) Mean Corpuscular Hemoglobin 28.4 PG (27.0-31.0) Mean Corpuscular Hemoglobin Concent 33.1 G/DL (32.0-36.0) Red Cell Distribution Width 13.0 % (11.6-14.8) Platelet Count 277 K/UL (150-450) Mean Platelet Volume 7.7 FL (6.5-10.1) Neutrophils (%) (Auto) 47.9 % (45.0-75.0) Lymphocytes (%) (Auto) 43.0 % (20.0-45.0) Monocytes (%) (Auto) 7.2 % (1.0-10.0) Eosinophils (%) (Auto) 0.8 % (0.0-3.0) Basophils (%) (Auto) 1.1 % (0.0-2.0) Sodium Level 141 MMOL/L (136-145) Potassium Level 2.7 MMOL/L (3.5-5.1) *L Chloride Level 107 MMOL/L (98-107) Carbon Dioxide Level 21 MMOL/L (21-32) Anion Gap 14 mmol/L (5-15) Blood Urea Nitrogen 1 mg/dL (7-18) L Creatinine 0.7 MG/DL (0.55-1.30) Estimat Glomerular Filtration Rate > 60 mL/min (>60) Glucose Level 71 MG/DL (74-106) #L Calcium Level 5.8 MG/DL (8.5-10.1) *L Phosphorus Level 2.1 MG/DL (2.5-4.9) L Magnesium Level 1.4 MG/DL (1.8-2.4) L Height (Feet): 5 Height (Inches): 5.00 Weight (Pounds): 115 Medications Current Medications Medications (Trade) Dose Ordered Sig/Mavis Route PRN Reason Start Time Stop Time Status Last Admin Dose Admin Amitriptyline HCl (Elavil) 150 mg BEDTIME ORAL 12/30/18 21:00 01/29/19 20:59 Barium Sulfate (Readi-Cat 2) 450 ml NOW PRN ORAL Radiology Procedure 12/30/18 11:45 12/30/18 23:59 Dextrose (Dextrose 50%) 25 ml Q30M PRN IV Hypoglycemia 12/29/18 17:37 01/27/19 17:36 Dextrose (Dextrose 50%) 50 ml Q30M PRN IV Hypoglycemia 12/29/18 17:37 01/27/19 17:36 Dextrose/ Electrolytes 1,000 ml @ 125 mls/hr Q8H IV 12/29/18 18:00 01/27/19 17:59 12/29/18 17:47 Heparin Sodium (Porcine) (Heparin 5000 units/ml) 5,000 units EVERY 12 HOURS SUBQ 12/29/18 21:00 01/26/19 08:59 12/29/18 21:15 Insulin Aspart (NovoLOG) EVERY 6 HOURS SUBQ 12/29/18 18:00 01/27/19 06:29 12/29/18 17:51 Insulin Detemir (Levemir) 24 units BEDTIME SUBQ 12/29/18 21:00 01/26/19 20:59 12/29/18 21:16 Ondansetron HCl (Zofran) 4 mg Q6H PRN IVP Nausea & Vomiting 12/29/18 17:38 01/25/19 17:37 Pantoprazole (Protonix) 40 mg DAILY IV 12/30/18 09:00 01/26/19 08:59 Piperacillin Sod/ Tazobactam Sod 3.375 gm/Sodium Chloride 110 ml @ 27.5 mls/hr EVERY 8 HOURS IVPB 12/29/18 22:00 01/01/19 13:59 12/29/18 21:13 Risperidone (RisperDAL) 2 mg DAILY ORAL 12/30/18 09:00 01/28/19 09:59 Thiamine HCl 100 mg/Sodium Chloride 56 ml @ 112 mls/hr Q24H IVPB 12/29/18 23:00 01/26/19 22:59 Assessment/Plan Problem List: (1) Schizoaffective disorder ICD Codes: F25.9 - Schizoaffective disorder, unspecified SNOMED: 63759973 Sarah Sahni MD Dec 29, 2018 22:10
[2018-12-29] MEDS: Thiamine HCl 100 MG in NS 55 ML IVPB SCH (23:58)
[2018-12-30] VITALS: BP 107/68
--- NOTE | 2018-12-30 | NUR ---
NURSE NOTES: Observed pt sleeping on the bed. No signs of pain or distress noted at this time. Will continue to monitor.
[2018-12-30 04:00] VITALS: BP 100/68
[2018-12-30] MEDS: Piperacillin/Tazobactam 3.375 GM in NS 110 ML IVPB SCH ×3 (05:50→21:55)
[2018-12-30] MEDS: NovoLOG Insulin Flexpen SUBQ SCH ×8 (05:51→23:57)
[2018-12-30 07:24] LABS: HEMATOCRIT 30.6 % (37.0-47.0); MEAN CORPUSCULAR VOLUME 87 FL (80-99); PLATELET COUNT 260 K/UL (150-450); RED BLOOD COUNT 3.51 M/UL (4.20-5.40); RED CELL DISTRIBUTION WIDTH 13.8 % (11.6-14.8); WHITE BLOOD COUNT 6.2 K/UL (4.8-10.8)
--- NOTE | 2018-12-30 07:24 | NUR ---
HAND-OFF: Report given to TYSHAWN Holland. No acute distress noted at this time.
--- NOTE | 2018-12-30 07:25 | NUR ---
NURSE NOTES: Received report from Jonah/RN, Patient is awake, alert x4, eating breakfast. No distress/SOB noted at this time. Bed in low position, Call light within reach. Will continue plan of care.
[2018-12-30 07:49] LABS: ANION GAP 11 mmol/L (5-15); BLOOD UREA NITROGEN 1 mg/dL (7-18); CARBON DIOXIDE 22 MMOL/L (21-32); CHLORIDE 108 MMOL/L (98-107); CREATININE 0.7 MG/DL (0.55-1.30); PHOSPHORUS 2.7 MG/DL (2.5-4.9); POTASSIUM 3.4 MMOL/L (3.5-5.1); SODIUM 141 MMOL/L (136-145)
[2018-12-30 07:50] LABS: CALCIUM 5.9 MG/DL (8.5-10.1)
[2018-12-30 08:00] VITALS: BP 95/63
[2018-12-30] MEDS: Pantoprazole Inj IV SCH (08:42)
[2018-12-30] MEDS: Heparin 5000 units/ml inj SUBQ SCH ×2 (08:58→21:50)
[2018-12-30] MEDS: D5 1/2NS w/KCl 20mEq 1,000 ML IV SCH ×2 (10:30→18:25)
--- NOTE | 2018-12-30 11:14 | General Progress Note ---
Assessment/Plan Assessment/Plan #DKA #severe metabolic anion gap acidosis, gap closed -Pulmonary/Critical care following -continue Levemir -continue to monitor finger sticks -Continue IV fluids -Diabetic teaching for insulin administration #Hypophosphatemia #Hypokalemia #Hypomagnesemia #Hypocalcemia - corrects to 6.9 with hypoalbuminemia -replete electrolytes aggressively and monitor closely -check ionized calcium, PTH level -Endocrine consulted #acute respiratory failure-improving #leukocytosis-improving #sepsis -CXR- no infiltrates -likely related to severe metabolic acidosis -continue broad spectrum IV antibiotics -f/u cultures- blood, urine -O2 support- as needed -Pulmonary recs appreciated #N/V -antiemetics as needed DVT Prophylaxis: SCD's, heparin Code status: Full Disposition: Once the patient is stable to leave the hospital, I anticipate the patient will likely be discharged to the following environment:Home I spent 45 minutes on this patient's case, and 25 minutes was dedicated to counseling and/or care coordination. Subjective Date patient seen: Dec 30, 2018 Time patient seen: 11:00 ROS Limited/Unobtainable: No Constitutional: Denies: chills Cardiovascular: Denies: chest pain Respiratory: Denies: cough Gastrointestinal/Abdominal: Denies: abdomen distended, abdominal pain Genitourinary: Denies: burning Allergies: Coded Allergies: PENICILLINS (Verified Allergy, Unknown, Hives, 12/29/18) Patient reported PCN allergy, but has tolerated Zosyn for past 48h no problem Subjective Medicine follow up for DKA and possible sepsis. No new complaints. Potassium ad calcium remain low Objective Last 24 Hour Vital Signs Date Time Temp Pulse Resp B/P (MAP) Pulse Ox O2 Delivery O2 Flow Rate FiO2 12/30/18 08:00 99.0 108 18 95/63 (74) 99 12/30/18 07:18 95 16 Room Air 21 12/30/18 04:00 98.4 105 18 100/68 (79) 97 12/30/18 04:00 96 12/30/18 00:00 98.8 105 18 107/68 (81) 97 12/30/18 00:00 102 12/29/18 23:11 102 20 Room Air 21 12/29/18 22:00 98/67 (77) 12/29/18 20:00 102 12/29/18 20:00 Room Air 12/29/18 20:00 98.4 106 17 88/65 (73) 98 12/29/18 17:05 97.9 112 18 104/72 (83) 98 12/29/18 16:00 98.3 103 17 96/60 (72) 100 12/29/18 16:00 Room Air 12/29/18 16:00 102 12/29/18 15:00 106 20 92/59 (70) 100 12/29/18 14:00 100 25 94/61 (72) 100 12/29/18 13:00 103 19 95/66 (76) 100 12/29/18 12:00 107 12/29/18 12:00 Room Air 12/29/18 12:00 98.3 104 17 108/66 (80) 100 Intake and Output 12/29/18 12/30/18 19:00 07:00 Intake Total 1440.0 ml 1690.5 ml Output Total 2240 ml 1600 ml Balance -800.0 ml 90.5 ml Intake Oral 120 ml IV Total 1320.0 ml 1690.5 ml Output Urine Total 2240 ml 1600 ml # Bowel Movements 1 Laboratory Tests 12/30/18 05:44: White Blood Count 6.2, Red Blood Count 3.51L, Hemoglobin 10.0L, Hematocrit 30.6L , Mean Corpuscular Volume 87, Mean Corpuscular Hemoglobin 28.4, Mean Corpuscular Hemoglobin Concent 32.6, Red Cell Distribution Width 13.8, Platelet Count 260, Mean Platelet Volume 7.6, Neutrophils (%) (Auto) , Lymphocytes (%) ( Auto) , Monocytes (%) (Auto) , Eosinophils (%) (Auto) , Basophils (%) (Auto) , Differential Total Cells Counted 100, Neutrophils % (Manual) 39L, Lymphocytes % (Manual) 55H, Monocytes % (Manual) 4, Eosinophils % (Manual) 2, Basophils % ( Manual) 0, Band Neutrophils 0, Platelet Estimate Adequate, Platelet Morphology Normal, Red Blood Cell Morphology Normal, Sodium Level 141, Potassium Level 3.4L , Chloride Level 108H, Carbon Dioxide Level 22, Anion Gap 11, Blood Urea Nitrogen 1L, Creatinine 0.7, Estimat Glomerular Filtration Rate > 60, Glucose Level 123H, Calcium Level 5.9*L, Phosphorus Level 2.7, Magnesium Level 1.8 Height (Feet): 5 Height (Inches): 5.00 Weight (Pounds): 126 General Appearance: no apparent distress, alert EENT: PERRL/EOMI, normal ENT inspection Neck: normal alignment, supple, normal inspection Cardiovascular: normal rate, regular rhythm Respiratory/Chest: lungs clear, normal breath sounds Abdomen: non tender, soft Neurologic: tax senior associate II-XII grossly normal, no motor/sensory deficits Manjit Kauffman MD Dec 30, 2018 11:14
[2018-12-30 11:46] LABS: ALBUMIN 2.3 G/DL (3.4-5.0)
[2018-12-30 12:00] VITALS: BP 101/71
--- NOTE | 2018-12-30 12:00 | NUR ---
NURSE NOTES: The Schedule Novolog insulin 6 unit was not given because patient didn't eat more than 50% of her breakfast.
--- NOTE | 2018-12-30 12:24 | NUR ---
CASE MANGER REVIEW SI:METABOLIC ACIDOSIS . DM VS: BP 93/63, P 106, T 98.5, RR 19, SpO2 99 RBC 3.51, Hgb 10.0, Hct 34.5, Ca 5.9, K 3.4 SI:CALCIUM GLUCONATE 120ml IVPB ELAVIL 100mg K-DUR 40meq PROTONIX 40mg IV RISPERIDONE 2mg NOVOLOG SUBQ TELE STATUS
[2018-12-30] MEDS ORDERED: Calcium Gluconate 10% 1 GM in NS 110 ML IVPB ONE (14:30)
[2018-12-30 16:00] VITALS: BP 95/63
--- NOTE | 2018-12-30 17:45 | Consultation ---
DATE OF CONSULTATION: 12/30/2018 ENDOCRINOLOGY CONSULTATION: CONSULTING PHYSICIAN: Ray Blanton M.D. REFERRING PHYSICIAN: Dr Manjit Choe REASON FOR CONSULTATION: Diabetes management. HISTORY OF PRESENT ILLNESS: The patient is a 48-year-old female with history of insulin-dependent diabetes, brought to the hospital with generalized weakness. The patient been off of her thyroid medication for 3 days. Previously on metformin. Had likely elevated glucose, was in DKA, and admitted to the ICU for IV insulin, IV fluids, DKA treated, transferred to the floor. PAST MEDICAL HISTORY: Diabetes. PAST SURGICAL HISTORY: None. FAMILY HISTORY: Noncontributory. SOCIAL HISTORY: No smoking, alcohol, or drug use. MEDICATIONS: Metformin, amitriptyline, Risperdal. REVIEW OF SYSTEMS: As per HPI. PHYSICAL EXAMINATION: VITAL SIGNS: Blood pressure 128/81, respiratory rate 21, pulse of 100, temperature of 98. HEENT: Pupils are equal and reactive to light. Sclerae anicteric. NECK: No JVD. HEART: Regular. LUNGS: Clear. ABDOMEN: Positive bowel sounds. EXTREMITIES: No clubbing, cyanosis, or edema. LABORATORY DATA: WBC 7, hemoglobin 11, hematocrit 34, platelets of 277. Sodium 141, potassium 2.7, chloride 107, bicarb 21, BUN 1, creatinine 0.7. A1c of 16. Lactic acid of 3.5. DIAGNOSES: 1. Diabetes, out of control. 2. Gap acidosis, combination of lactic and diabetic ketoacidosis. DISCUSSION: 1. Continue Levemir 24 units at bedtime. 2. Continue to hold metformin. 3. Add NovoLog 6 units before each meal. 4. NovoLog sliding scale before meals and at bedtime. 5. The patient will leave the hospital with insulin. I will follow the patient closely during hospital stay. Thank you, Dr. Choe, for the courtesy of this consultation. Ray Blanton M.D. DR: ZACH JOB#: [id number] CC: MARYCARMEN
--- NOTE | 2018-12-30 19:15 | NUR ---
NURSE NOTES: Report received from Karen Wesley RN. Pt is resting in bed in stable condition. Pt is awake, alert, and oriented x4. Pt is on room air and breathing is even and unlabored. No acute distress noted. IV site is L hand #24g and is running IV fluids at rx rate. Pt noted to be independently ambulatory with steady gait. Pt instructed to call prior to attempting to get out of bed since she has IV therapy. Pt verbalized understanding. Bed is placed in lowest position with brake engaged and side rails up x2. Call light and side table are placed within reach. Will continue to monitor.
--- NOTE | 2018-12-30 19:15 | NUR ---
HAND-OFF: Report given to Nelida/TYSHAWN. Patient in stable condition. Endorsed plan of care.
[2018-12-30 20:00] VITALS: BP 93/63
[2018-12-30] MEDS ORDERED: Amitriptyline 100mg tab ORAL SCH ×3 (21:00)
[2018-12-30] MEDS: Levemir Flexpen SUBQ SCH (21:54)
--- NOTE | 2018-12-30 23:00 | NUR ---
NURSE NOTES: L hand #24g IV site leaking, discontinued. New IV site is R FA #20g - asymptomatic, patent, and intact and running IV fluids at rx rate.
[2018-12-30] MEDS: Thiamine HCl 100 MG in NS 55 ML IVPB SCH (23:54)
[2018-12-31] VITALS: BP 93/61
[2018-12-31] MEDS: D5 1/2NS w/KCl 20mEq 1,000 ML IV SCH ×2 (03:28→10:00)
[2018-12-31 04:00] VITALS: BP 93/62
[2018-12-31] MEDS: NovoLOG Insulin Flexpen SUBQ SCH ×2 (06:00→06:49)
[2018-12-31] MEDS: Piperacillin/Tazobactam 3.375 GM in NS 110 ML IVPB SCH (06:50)
--- NOTE | 2018-12-31 07:31 | NUR ---
HAND-OFF: Report given to Larisa Bowman RN. Pt is resting in bed in stable condition. No acute distress noted. Endorsed plan of care.
[2018-12-31 07:35] LABS: BASOPHILS % (AUTO) 1.2 % (0.0-2.0); EOSINOPHILS % (AUTO) 2.1 % (0.0-3.0); LYMPHOCYTES % (AUTO) 53.7 % (20.0-45.0); MEAN CORPUSCULAR VOLUME 88 FL (80-99); PLATELET COUNT 316 K/UL (150-450); RED BLOOD COUNT 3.52 M/UL (4.20-5.40); RED CELL DISTRIBUTION WIDTH 13.6 % (11.6-14.8); WHITE BLOOD COUNT 7.2 K/UL (4.8-10.8)
[2018-12-31 07:45] LABS: ANION GAP 13 mmol/L (5-15); BLOOD UREA NITROGEN 1 mg/dL (7-18); CALCIUM 6.8 MG/DL (8.5-10.1); CARBON DIOXIDE 21 MMOL/L (21-32); CHLORIDE 109 MMOL/L (98-107); CREATININE 0.7 MG/DL (0.55-1.30); POTASSIUM 3.7 MMOL/L (3.5-5.1); SODIUM 143 MMOL/L (136-145)
--- NOTE | 2018-12-31 07:49 | NUR ---
NURSE NOTES: Received report from TYSHAWN Krause. Pt is sitting up in bed having breakfast. No distress noted. Bed is in lowest position, side rails up X2, and call light is within reach. Will continue to monitor.
[2018-12-31 08:00] VITALS: BP 99/65
[2018-12-31] MEDS: Pantoprazole Inj IV SCH (08:52)
[2018-12-31] MEDS: Heparin 5000 units/ml inj SUBQ SCH (08:53)
[2018-12-31 12:00] VITALS: BP 100/70
--- NOTE | 2018-12-31 12:13 | Discharge Summary ---
Discharge Summary Hospital Course Date of Admission Dec 26, 2018 at 17:30 Date of Discharge 12/31/18 Admitting Diagnosis UNCONTROLLED GLUCOSE HPI Casandra Mauro is a 48 year old female who was admitted on Dec 26, 2018 at 17:30 for Uncontrolled Glucose Hospital Course Patient was admitted to the medical service with DKA due to noncompliance with metformin. She was treated with insulin drip with control of DM and started on Lantus. Seen by Endocrinology. She will continue Lantus as outpatient. Patient also had severre elctrolytes abnormalities and required multiple doses of IV K, Mg , Phos and Ca. She will be discharged home in good condition, PCP follow Dr. Powell next week ,spoke with nurse at his office. #DKA #severe metabolic anion gap acidosis, gap closed -continue Lantus as outpatient #Hypophosphatemia #Hypokalemia #Hypomagnesemia #Hypocalcemia - corrects to 6.9 with hypoalbuminemia -resolved #acute respiratory failure-improving #leukocytosis-improving #sepsis resolved, stop antibiotics Time spent in preparing discharge was 35 minutes Discharge Discharge Disposition Patient was discharged to Home Discharge Diagnoses: (1) Diabetic ketoacidosis Manjit Kauffman MD Dec 31, 2018 12:13
[2018-12-31] MEDS: Levemir Flexpen SUBQ SCH (13:32)
[2018-12-31] MEDS ORDERED: D5 1/2NS 1000ml IV ONE (14:16)
[2018-12-31] MEDS ORDERED: Tubing IV Secondary IV ONE ×2 (14:16)
[2018-12-31] MEDS ORDERED: NS 275ml ONE ×2 (14:16)
--- NOTE | 2018-12-31 14:30 | NUR ---
NURSE NOTES: Patients was discharged home per MDs order. Belongings remained at patients side. Signed belongings list is in the chart. Iv was removed and heart monitor was returned to [place]. Pt did not want insulin before leaving. Pt was taken home via taxi. Pt in stable condition at time of DC
--- NOTE | 2018-12-31 22:18 | General Progress Note ---
Assessment/Plan Problem List: (1) Schizoaffective disorder ICD Codes: F25.9 - Schizoaffective disorder, unspecified SNOMED: 40833558 Status: stable Assessment/Plan cont current meds provided ro/st Subjective Date patient seen: Dec 31, 2018 Neurologic/Psychiatric: Reports: anxiety, depressed, emotional problems Allergies: Coded Allergies: PENICILLINS (Verified Allergy, Unknown, Hives, 12/29/18) Patient reported PCN allergy, but has tolerated Zosyn for past 48h no problem Objective Last 24 Hour Vital Signs Date Time Temp Pulse Resp B/P (MAP) Pulse Ox O2 Delivery O2 Flow Rate FiO2 12/31/18 12:00 98.2 110 17 100/70 (80) 100 12/31/18 09:00 Room Air 12/31/18 08:00 115 16 Room Air 21 12/31/18 08:00 97.3 103 19 99/65 (76) 98 12/31/18 08:00 116 12/31/18 04:00 95 12/31/18 04:00 98.3 106 19 93/62 (72) 98 12/31/18 00:00 98.5 105 19 93/61 (72) 98 12/31/18 00:00 108 Intake and Output 12/30/18 12/31/18 19:00 07:00 Intake Total 360 ml Balance 360 ml Intake Oral 360 ml # Voids 1 3 Laboratory Tests 12/31/18 05:47: White Blood Count 7.2, Red Blood Count 3.52L, Hemoglobin 10.0L, Hematocrit 31.0L , Mean Corpuscular Volume 88, Mean Corpuscular Hemoglobin 28.4, Mean Corpuscular Hemoglobin Concent 32.3, Red Cell Distribution Width 13.6, Platelet Count 316, Mean Platelet Volume 7.1, Neutrophils (%) (Auto) 35.0L, Lymphocytes ( %) (Auto) 53.7H, Monocytes (%) (Auto) 8.0, Eosinophils (%) (Auto) 2.1, Basophils (%) (Auto) 1.2, Sodium Level 143, Potassium Level 3.7, Chloride Level 109H, Carbon Dioxide Level 21, Anion Gap 13, Blood Urea Nitrogen 1L, Creatinine 0.7, Estimat Glomerular Filtration Rate > 60, Glucose Level 138H, Calcium Level 6.8L, Magnesium Level 1.6L Height (Feet): 5 Height (Inches): 5.00 Weight (Pounds): 128 General Appearance: WD/WN, no apparent distress, alert Neurologic: oriented x 3, responsive, depressed affect Sarah Sahni MD Dec 31, 2018 22:18
--- NOTE | 2018-12-31 22:18 | General Progress Note ---
Assessment/Plan Problem List: (1) Schizoaffective disorder ICD Codes: F25.9 - Schizoaffective disorder, unspecified SNOMED: [id number] Status: stable Assessment/Plan cont current meds provided ro/st Subjective Date patient seen: Dec 30, 2018 Neurologic/Psychiatric: Reports: anxiety, depressed, emotional problems Allergies: Coded Allergies: PENICILLINS (Verified Allergy, Unknown, Hives, 12/29/18) Patient reported PCN allergy, but has tolerated Zosyn for past 48h no problem Objective Last 24 Hour Vital Signs Date Time Temp Pulse Resp B/P (MAP) Pulse Ox O2 Delivery O2 Flow Rate FiO2 12/31/18 12:00 98.2 110 17 100/70 (80) 100 12/31/18 09:00 Room Air 12/31/18 08:00 115 16 Room Air 21 12/31/18 08:00 97.3 103 19 99/65 (76) 98 12/31/18 08:00 116 12/31/18 04:00 95 12/31/18 04:00 98.3 106 19 93/62 (72) 98 12/31/18 00:00 98.5 105 19 93/61 (72) 98 12/31/18 00:00 108 Intake and Output 12/30/18 12/31/18 19:00 07:00 Intake Total 360 ml Balance 360 ml Intake Oral 360 ml # Voids 1 3 Laboratory Tests 12/31/18 05:47: White Blood Count 7.2, Red Blood Count 3.52L, Hemoglobin 10.0L, Hematocrit 31.0L , Mean Corpuscular Volume 88, Mean Corpuscular Hemoglobin 28.4, Mean Corpuscular Hemoglobin Concent 32.3, Red Cell Distribution Width 13.6, Platelet Count 316, Mean Platelet Volume 7.1, Neutrophils (%) (Auto) 35.0L, Lymphocytes ( %) (Auto) 53.7H, Monocytes (%) (Auto) 8.0, Eosinophils (%) (Auto) 2.1, Basophils (%) (Auto) 1.2, Sodium Level 143, Potassium Level 3.7, Chloride Level 109H, Carbon Dioxide Level 21, Anion Gap 13, Blood Urea Nitrogen 1L, Creatinine 0.7, Estimat Glomerular Filtration Rate > 60, Glucose Level 138H, Calcium Level 6.8L, Magnesium Level 1.6L Height (Feet): 5 Height (Inches): 5.00 Weight (Pounds): 128 General Appearance: WD/WN, alert, agitated Neurologic: oriented x 3, responsive, depressed affect Sarah Sahni MD Dec 31, 2018 22:17
== END 2018-12-31 14:17 | disposition home or self-care (01) | DRG 871 ==
LOC: EDBD 15:47 → EMR 16:52 → EDBEDREQ 17:16 → ICU 17:30 → 2E 12-29 17:10
DX: A41.9 Sepsis, unspecified organism (principal); E11.10 Type 2 diabetes mellitus with ketoacidosis without coma; J96.00 Acute respiratory failure, unspecified whether with hypoxia or hypercapnia; F25.9 Schizoaffective disorder, unspecified; Z91.14 Patient's other noncompliance with medication regimen; E83.39 Other disorders of phosphorus metabolism; E87.6 Hypokalemia; E83.42 Hypomagnesemia; E83.51 Hypocalcemia; Z88.0 Allergy status to penicillin
CPT/HCPCS: 36415; 36600; 71045; 71250; 74176; 80048; 80053; 80329; 81003; 81025; 82009; 82040; 82330; 82803; 82962; 83036; 83605; 83735; 83930; 83970; 84100; 85007; 85025; 87040; 87081; 93005; 93970; 94660; 94664; 96361; 96365; 96366; 99285; 99291; J1815; J3490; J8499; S5561

== ENCOUNTER 2019-04-12 20:54 | Emergency (ER) | payer MEDICARE, OTHER ==
[~2019-04-12] VITALS: Ht 157.5 cm; Wt 53.1 kg
[~2019-04-12 20:54] MED LIST: AMITRIPTYLINE100 MG ORAL; METFORMIN500 MG/5 M PO; NKM; RISPERDAL2 MG ORAL
--- NOTE | 2019-04-12 21:20 | NUR ---
ED Nurse Note: pt walked in c/o increased heartrate and high blood pressure, pt states she hasn't been taking her HTN medication for past two days because she ran out of her prescription. pt admits drinking today, reports she drank heavily over the weekend. pt AA&ox4, gcs=15, skin warm and dry, resp even and unlabored on RA, -n/v/d, ambulates w/ steady gait, noted sinus tach on potline monitor, noted bp 163 systolic, ERMD aware of pt's condition, will cont monitor.
--- NOTE | 2019-04-12 21:20 | Emergency Room Report ---
History of Present Illness General Chief Complaint: Hypertension Source: Patient Present Illness HPI This is a 48-year-old female with history of diabetes. She presents with chief complaint of palpitation high blood pressure. Onset all day today. She said her heart was beating fast in the 120s 130. Blood pressure was high at home. No syncope. No nausea no vomiting. Says she felt funny. Denies any other complaint. Had this problem before but not as severe or constant as today. Over the weekend, the democrat and said she was drinking a lot. Last drink was 2 PM today. Denies any drug use. Patient states she ran out of her amlodipine for the last 2 days. Allergies: Coded Allergies: PENICILLINS (Verified Allergy, Unknown, Hives, 12/29/18) Patient reported PCN allergy, but has tolerated Zosyn for past 48h no problem Patient History Past Medical History: see triage record, old chart reviewed, DM Past Surgical History: none Pertinent Family History: none Social History: Reports: alcohol use Last Menstrual Period: Mar 11 2019 Now: No Immunizations: other Reviewed Nursing Documentation: PMH: Agreed; PSxH: Agreed Nursing Documentation-PMH Hx Cardiac Problems: Yes Hx Hypertension: Yes Hx Diabetes: Yes Hx Neurological Problems: No Review of Systems Eye: Denies: eye pain, blurred vision ENT: Denies: ear pain, nose congestion, throat swelling Respiratory: Denies: cough, shortness of breath Cardiovascular: Reports: palpitations; Denies: chest pain Gastrointestinal: Denies: abdominal pain, diarrhea, nausea, vomiting Musculoskeletal: Denies: back pain, joint pain Skin: Denies: rash Neurological: Denies: headache, numbness Endocrine: Denies: increased thirst, increased urine Hematologic/Lymphatic: Denies: easy bruising All Other Systems: negative except mentioned in HPI Physical Exam Vital Signs Date Time Temp Pulse Resp B/P (MAP) Pulse Ox O2 Delivery O2 Flow Rate FiO2 04/12/19 21:05 98.4 128 18 152/89 (110) 97 Room Air Vitals with tachycardia and hypertension Sp02 EP Interpretation: reviewed, normal General Appearance: well appearing, no apparent distress, alert Head: normocephalic, atraumatic Eyes: bilateral eye PERRL, bilateral eye EOMI ENT: hearing grossly normal, normal pharynx Neck: full range of motion, supple, no meningismus Respiratory: chest non-tender, lungs clear, normal breath sounds Cardiovascular #1: regular rate, rhythm, no murmur, tachycardia Gastrointestinal: normal bowel sounds, non tender, no mass, no organomegaly, no bruit, non-distended Musculoskeletal: back normal, gait/station normal, normal range of motion Psychiatric: mood/affect normal Medical Decision Making Diagnostic Impression: Primary Impression: Hypertension Qualified Codes: I10 - Essential (primary) hypertension Additional Impressions: Hypokalemia Palpitations ER Course Patient presents with hypertension and hypokalemia. She was tachycardic to the 120s and 130 here. Better after Ativan and IV fluid. There may be some withdrawal symptoms to this. Patient is not short of breath. She is not hypoxic. She is breathing normally. Chest x-ray is clear. She said that her heart rate is normally run in the 110s at baseline. She is also out of her amlodipine for the last 2 days. I will switch her to a beta-tamiko. EKG Diagnostic Results Rate: tachycardiac Rhythm: NSR ST Segments: no acute changes Rhythm Strip Diag. Results EP Interpretation: yes Rate: 120 Rhythm: NSR, no PVC's, no ectopy Chest X-Ray Diagnostic Results Chest X-Ray Diagnostic Results : Chest X-Ray Ordered: Yes # of Views/Limited/Complete: 1 View Indication: Other - palpitation EP Interpretation: Yes Interpretation: no consolidation, no effusion, no pneumothorax, no acute cardiopulmonary disease Impression: No acute disease Electronically Signed by: Benigno Monge MD Last Vital Signs Date Time Temp Pulse Resp B/P (MAP) Pulse Ox O2 Delivery O2 Flow Rate FiO2 04/12/19 21:05 98.4 128 18 152/89 (110) 97 Room Air Status: improved Disposition: HOME, SELF-CARE Condition: Stable Scripts Atenolol* (TENORMIN*) 50 Mg Tablet 50 MG ORAL DAILY, #30 TAB Prov: Benigno Monge MD 04/12/19 Additional Instructions: Follow-up with your doctor in 7 days. Return if symptoms worsen. Benigno Monge MD Apr 12, 2019 21:20
[2019-04-12 21:41] LABS: HEMATOCRIT 31.6 % (37.0-47.0); HEMOGLOBIN 10.4 G/DL (12.0-16.0); MEAN CORPUSCULAR VOLUME 89 FL (80-99); PLATELET COUNT 265 K/UL (150-450); RED BLOOD COUNT 3.56 M/UL (4.20-5.40); RED CELL DISTRIBUTION WIDTH 14.1 % (11.6-14.8); WHITE BLOOD COUNT 7.5 K/UL (4.8-10.8)
[2019-04-12 21:42] VITALS: BP 163/98
[2019-04-12 21:44] LABS: INR 1.1 (0.9-1.1)
[2019-04-12 21:46] LABS: APPEARANCE,URINE CLEAR; BILIRUBIN, URINE NEGATIVE (NEGATIVE); COLOR,URINE PALE YELLOW; GLUCOSE, URINE (UA) NEGATIVE (NEGATIVE); KETONES,URINE 2+ (NEGATIVE); LEUKOCYTE ESTERASE ,URINE 1+ (NEGATIVE); NITRITE,URINE NEGATIVE (NEGATIVE); PH,URINE 6 (4.5-8.0); PROTEIN,URINE NEGATIVE (NEGATIVE); UROBILINOGEN,URINE NORMAL MG/DL (0.0-1.0)
[2019-04-12 21:59] LABS: ALANINE AMINOTRANSFERASE 66 U/L (12-78); ALBUMIN 3.7 G/DL (3.4-5.0); ALKALINE PHOSPHATASE 324 U/L (46-116); ANION GAP 18 mmol/L (5-15); ASPARTATE AMINO TRANSFERASE 138 U/L (15-37); BILIRUBIN,TOTAL 0.4 MG/DL (0.2-1.0); BLOOD UREA NITROGEN 3 mg/dL (7-18); CALCIUM 7.6 MG/DL (8.5-10.1); CARBON DIOXIDE 20 MMOL/L (21-32); CHLORIDE 97 MMOL/L (98-107); CKMB 0.5 NG/ML (0.0-3.6); CREATINE KINASE 190 U/L (26-308); CREATININE 0.7 MG/DL (0.55-1.30); SODIUM 135 MMOL/L (136-145)
[2019-04-12 22:01] LABS: POTASSIUM 2.7 MMOL/L (3.5-5.1)
--- NOTE | 2019-04-12 22:10 | NUR ---
ED Nurse Note: pt resting at this time, vss, sinus tach on registered nurse cardiac telemetry, no sx distress, denies pain, extra warm blanket provided for comfort, nephew at the bedside, safety precautions in place, will cont monitor.
[2019-04-12] MEDS ORDERED: LORazepam Inj 2mg/ml 1ml IV ONE (22:15)
[2019-04-12 22:20] VITALS: BP 158/65
[2019-04-12] MEDS ORDERED: ATENOLOL50 MG ORAL (22:49)
[2019-04-12] MEDS ORDERED: Metoprolol 5mg/5ml Inj IVP ONE (23:00)
[2019-04-12 23:11] VITALS: BP 142/95
[2019-04-12 23:29] VITALS: BP 141/75
--- NOTE | 2019-04-12 23:29 | NUR ---
ED Nurse Note: pt cleared to be d/c per ERMD, pt discharge and aftercare instruction provided w/ prescription, pt education done via discussion and handout, pt advised to follow up with pcp or return to ed if changes in condition, vss, ambulatory w/ steady gait, iv d/c and id band removed, pt accompanied by nephew, left w/ all belongings.
--- NOTE | 2019-04-13 10:50 | Diagnostic Imaging Report ---
Indication: Chest pain Technique: One view of the chest Comparison: For 05/11/2019 Findings: Lungs and pleural spaces are clear. Heart size is normal. Previously demonstrated left basilar atelectasis has improved Impression: No acute process
--- NOTE | 2019-04-13 13:57 | Cardiology Report ---
APPROVED REPORT EKG Measurement Heart [id number] Sinus tachycardia Possible Left atrial enlargement Borderline ECG
== END 2019-04-12 23:29 | disposition home or self-care (01) ==
LOC: EMR 21:06
DX: I10 Essential (primary) hypertension (principal); R00.2 Palpitations; E87.6 Hypokalemia; Z88.0 Allergy status to penicillin; E11.9 Type 2 diabetes mellitus without complications
CPT/HCPCS: 36415; 71045; 80053; 80307; 81003; 82550; 82553; 83880; 84484; 85007; 85025; 85610; 85730; 93005; 96361; 96374; 96375; 99284; J8499